=== PATIENT | female | born 1940 | race Caucasian/White ===

== ENCOUNTER 2020-05-01 14:26 | Outpatient (CLI) | payer MEDICARE, MEDICAID, SELFPAY ==
--- NOTE | 2020-05-01 14:31 | XR_ITS ---
WS: [id number] Bone mineral density performed on a [place], 05/01/2020 Clinical data: OSTEOPOROSIS AGE-RELATED WITHOUT CURRENT PATHOLOGICAL FX Findings: The first 4 lumbar vertebral bodies demonstrated the bone mineral density of 0.930 g/cm2 for a young adult T score of -2.1. Measurement of the left hip reveals a bone mineral density of 0.775 g/cm2 with a young adult T score of -1.9. Measurement of the right hip reveals the bone mineral density of 0.710 g/cm2 for young adult T score of -2.4. XR/XR DEXA axial skeleton* [id number] Impression: 1. Osteopenia of the lumbar spine and both hips. 2. Slight improvement in bone mineral density compared to previous examination of 02/01/2018.
== END 2020-05-01 14:27 | disposition home or self-care (01) ==
LOC: RADWPI 14:30
PROVIDERS: Family Provider Family Medicine; PCP Family Medicine; Visit Provider Family Medicine
DX: M81.0 Age-related osteoporosis without current pathological fracture (principal); M85.89 Other specified disorders of bone density and structure, multiple sites
CPT/HCPCS: 77080

== ENCOUNTER 2020-05-17 12:33 | Outpatient (CLI) | payer MEDICARE, MEDICAID, SELFPAY ==
--- NOTE | 2020-05-17 12:38 | USCV_ITS ---
February, Age: 80 Gender: F : 1940 Exam Date: 05/17/2020 12:51 Ordering Phys: Rolan Haskins MD (Andy) ([email or web address] [place]) Technologist: Maria C Fatima [place]am [place] [facility] [place]ication: Carotid artery dz Risk Factors: Previous Vascular Surgery: R CEA Right Brachial BP: / Left Brachial BP: / Right Left Velocity (cm/s) Spectral Plaque Velocity (cm/s) Spectral Plaque Syst/Diast Broadening Syst/Diast Broadening 125.70/13.20 Prox CCA 67.70 / 11.20 110.30/14.30 Mid CCA 82.00 / 23.50 160.00/23.30 Distal CCA 64.90 / 10.70 113.10/10.50 Prox ICA 103.90/ 19.10 137.50/23.35 Mid ICA 65.80 / 18.00 93.40/ 17.70 Distal ICA 57.30 / 15.90 169.10 ECA 144.10 1.30 ICA/CCA 1.27 Antegrade Vertebral Bi- directiona l 111.0/ 17.70 cm/s / cm/s 0 Tri Subclavian Bi 94.80 49.80 CONCLUSIONS Right ICA stenosis <50%. Mild atheromatous plaque right carotid bulb/ICA. Left ICA stenosis <50%. Mild atheromatous plaque left carotid bulb/ICA. Normal antegrade Doppler flow noted in the right vertebral artery. Bidirectional Doppler flow noted in the left vertebral artery. Callum Magana MD (Electronically Signed) Final Date: 17 May 2020 16:35 S
--- NOTE | 2020-05-17 12:51 | USCV_ITS ---
February, Age: 80 Gender: F : 1940 Exam Date: 05/17/2020 13:35 Ordering Phys: Rolan Haskins MD (Andy) ([email or web address]) Technologist: Raymundo Gracia [place] [facility] [place]: PRECORDIAL MURMUR BP: 139 / 75 HR: 89 Rhythm: Sinus Technical Quality: Technically difficult study MEASUREMENTS (Male / Female) Normal Values 2D ECHO LV Diastolic Diameter PLAX 4.4 cm 4.2 - 5.9 / 3.9 - 5.3 cm LV Systolic Diameter PLAX 2.9 cm LV Chamber Size 3.9 cm IVS Diastolic Thickness 1.3 cm 0.6 - 1.0 / 0.6 - 0.9 cm IVS Systolic Thickness 1.7 cm LVPW Diastolic Thickness 1.3 cm 0.6 - 1.0 / 0.6 - 0.9 cm LVPW Systolic Thickness 1.3 cm RV Chamber Size 2.9 cm LVOT Diameter 2.0 cm LV Ejection Fraction 2D Teich 65.1 % LA Diameter 4.3 cm LA Width 3.0 cm LA Height 4.2 cm RA Width 2.3 cm RA Height 3.8 cm Aorta at Sinotubular Diameter 2.3 cm M-MODE LV Diastolic Diameter MM 4.5 cm 4.2 - 5.9 / 3.9 - 5.3 cm LV Systolic Diameter MM 2.9 cm LV Ejection Fraction MM Teich 65.6 % IVS Diastolic Thickness MM 1.2 cm 0.6 - 1.0 / 0.6 - 0.9 cm IVS Systolic Thickness MM 1.1 cm LVPW Diastolic Thickness MM 1.0 cm 0.6 - 1.0 / 0.6 - 0.9 cm LVPW Systolic Thickness MM 1.7 cm Aortic Annulus Diameter 2.6 cm LA Ao Ratio MM 1.6 MV E Point Septal Separation 0.4 cm DOPPLER AV Peak Velocity 269.0 cm/s LVOT Peak Velocity 127.0 cm/s AV Area Cont Eq vti 1.6 cm squared AV Area Cont Eq pk 1.5 cm squared MV Area PHT 5.8 cm squared Mitral E to A Ratio 0.7 MV E' Velocity 5.0 cm/s Mitral E to MV E' Ratio 20.8 Mitral E to LV E' Lateral Ratio 20.4 Mitral E to LV E' Septal Ratio 21.2 TR Peak Velocity 191.9 cm/s TR Peak Gradient 14.7 mmHg TR Mean Velocity 169.8 cm/s TR Mean Gradient 11.8 mmHg TR Velocity Time Integral 54.5 cm TV Peak E Velocity 49.0 cm/s Right Atrial Pressure 3.0 mmHg Pulmonary Artery Systolic Pressu 17.7 mmHg PV Peak Velocity 59.0 cm/s FINDINGS Left Ventricle Normal left ventricular size and systolic function, EF 65%.mild left ventricular hypertrophy. No regional wall motion abnormalities. Grade I/IV diastolic dysfunction (abnormal relaxation filling pattern), normal to mildly elevated filling pressures. Right Ventricle The right ventricle is normal in size and function. Right Atrium The right atrium is normal in size. Left Atrium The left atrium is mildly dilated Mitral Valve Thickened mitral valve. Mild mitral annular calcification. Aortic Valve Mild aortic valve stenosis, mean gradient 12.6 mmHg, ISABELA 1.6 cm squared. Peak velocity of 2.69 m/s Tricuspid Valve No gross abnormalities noted Pulmonic Valve No gross abnormalities noted Pericardium Normal pericardium without effusion. Aorta Normal ascending aorta dimension. CONCLUSIONS Normal left ventricular size and systolic function, EF 65%.mild left ventricular hypertrophy. No regional wall motion abnormalities. Grade I/IV diastolic dysfunction (abnormal relaxation filling pattern), normal to mildly elevated filling pressures. Thickened mitral valve. Mild mitral annular calcification. The left atrium is mildly dilated Mild aortic valve stenosis, mean gradient 12.6 mmHg, ISABELA 1.6 cm squared. Peak velocity of 2.69 m/s. There is no pericardial effusion. There are no intracardiac masses. Compared to the study from 02/01/2018, there is development of aortic valve stenosis. Dr Alejandra Shepard MD [facility] (Electronically Signed) Final Date: 17 May 2020 17:41 S
== END 2020-05-17 12:34 | disposition home or self-care (01) ==
PROVIDERS: Family Provider Family Medicine; PCP Family Medicine; Visit Provider Thoracic Surgery (Cardiothoracic Vascular Surgery)
DX: I65.23 Occlusion and stenosis of bilateral carotid arteries (principal); R01.1 Cardiac murmur, unspecified; I08.0 Rheumatic disorders of both mitral and aortic valves
CPT/HCPCS: 93306; 93880

== ENCOUNTER 2020-12-14 13:01 | Outpatient (CLI) | payer MEDICARE, MEDICAID, SELFPAY ==
--- NOTE | 2020-12-14 13:10 | MM_ITS ---
WS: [id number] Exam: [id number] Date/Time of Exam: 12/14/2020 1:18 PM Reason For Exam: SCREENING VIEWS: MLO and CC views both breasts. Comparison made with prior exam of 07/16/2017, 07/23/2018 and 08/09/2019 Findings: There was no sign of mass, architectural distortion or suspicious calcification in either breast. Sc attered fibroglandular densities MM/[id number] Impression: BI-RADS: 2-Benign FOLLOW-UP: 1 Year Follow-up This mammogram was also analyzed by the Computer Aided Detection System R2 Imag e Distribution Analyst.
== END 2020-12-14 13:02 | disposition home or self-care (01) ==
LOC: RADSHAW 13:08
PROVIDERS: PCP Family Medicine; Visit Provider Family Medicine
DX: Z12.31 Encounter for screening mammogram for malignant neoplasm of breast (principal)
CPT/HCPCS: 77067

== ENCOUNTER 2021-01-07 10:23 | Outpatient (CLI) | payer MEDICARE, MEDICAID, SELFPAY ==
--- NOTE | 2021-01-07 10:31 | USCV_ITS ---
February, Age: 80 Gender: F : 1940 Exam Date: 01/07/2021 10:51 Ordering Phys: Rolan Haskins MD (Andy) ([email or web address] [place] Technologist: Kayli Tracy [place] [facility] [place]: EVAL FOR CAROTID STENOSIS Risk Factors: Previous Vascular Surgery: Right Brachial BP: / Left Brachial BP: / Right Left Velocity (cm/s) Spectral Plaque Velocity (cm/s) Spectral Plaque Syst/Diast Broadening Syst/Diast Broadening 98.10/ 11.00 Prox CCA 57.10 / 9.90 101.40/14.30 Mid CCA 67.40 / 17.10 143.30/15.40 Distal CCA 61.70 / 17.60 149.90/18.40 Prox ICA 164.50/ 38.30 88.00/ 20.80 Mid ICA 96.30 / 24.70 83.10/ 21.20 Distal ICA 94.00 / 24.80 119.20 ECA 249.95 1.05 ICA/CCA 2.44 Antegrade Vertebral Bi- directiona l 103.4/ 19.80 cm/s 62.40/ 24.80 cm/s 0 Tri Subclavian Tri 313.3 371.3 0 0 FINDINGS Comparison:. 05/17/20. Increasing velocity in the left ICA and tortuosity. Stable velocities right ICA. Bidirectional left vertebral artery. Mild left ECA stenosis. CONCLUSIONS Left ICA stenosis 50-69%. Stenosis has increased since the prior exam. Right ICA stenosis < 50%. Dr. Carolyne Luo DO (Electronically Signed) Final Date: 07 January 2021 16:25 S
== END 2021-01-07 10:24 | disposition home or self-care (01) ==
LOC: US 10:25
PROVIDERS: PCP Family Medicine; Visit Provider Thoracic Surgery (Cardiothoracic Vascular Surgery)
DX: I65.23 Occlusion and stenosis of bilateral carotid arteries (principal)
CPT/HCPCS: 93880

== ENCOUNTER 2021-07-17 10:36 | Outpatient (CLI) | payer MEDICARE, MEDICAID, SELFPAY ==
--- NOTE | 2021-07-17 11:00 | USCV_ITS ---
February, Age: 81 Gender: F : 1940 Exam Date: 07/17/2021 11:03 Ordering Phys: Rolan Haskins MD (Andy) ([email or web address] [place] Technologist: Raymundo Gracia [place] [facility] [place]: EVAL FOR STENOSIS Risk Factors: Previous Vascular Surgery: Right Brachial BP: / Left Brachial BP: / Right Left Velocity (cm/s) Spectral Plaque Velocity (cm/s) Spectral Plaque Syst/Diast Broadening Syst/Diast Broadening 84.90/ 11.00 Prox CCA 59.30 / 13.40 82.70/ 12.10 Mid CCA / 110.30/11.00 Distal CCA 46.80 / 11.10 126.70/15.80 Prox ICA 160.70/ 36.10 126.70/26.90 Mid ICA 105.40/ 20.30 125.10/23.80 Distal ICA 116.40/ 21.30 132.00 ECA 121.90 1.15 ICA/CCA 2.74 Antegrade Vertebral Antegrade 83.90/ 17.40 cm/s 118.1/ 9.80 cm/s 0 Tri Subclavian Tri 136.2 91.80 0 FINDINGS Comparison:. 01/07/21. Stable plaque and velocities since the prior exam. Continued moderate elevation of left ICA velocity and mild on the right. Bilateral antegrade vertebral arteries. CONCLUSIONS No change seen from prior study. Left ICA stenosis 50-69%. Right ICA stenosis < 50%. Dr. Carolyne Luo DO (Electronically Signed) Final Date: 17 July 2021 12:04 S
== END 2021-07-17 10:37 | disposition home or self-care (01) ==
PROVIDERS: PCP Family Medicine; Visit Provider Thoracic Surgery (Cardiothoracic Vascular Surgery)
DX: I65.23 Occlusion and stenosis of bilateral carotid arteries (principal)
CPT/HCPCS: 93880

== ENCOUNTER 2022-02-04 08:20 | Outpatient (CLI) | payer MEDICARE, MEDICAID, SELFPAY ==
--- NOTE | 2022-02-04 08:45 | MM_ITS ---
WS: [id number] BILATERAL SCREENING 2D DIGITAL MAMMOGRAM WITH CAD HISTORY: 12/14/2020 and 08/09/2019 COMPARISON: None available. Bilateral CC and MLO views submitted. Computer aided detection analyzed. 2-D imaging is performed on this examination. 3-D imaging not performed due to patient's condition an d risk for motion. Breast composition: There are scattered areas of fibroglandular density. No suspicious masses, microc alcifications or architectural distortion. There are numerous calcifications within each breast. Nipp les are retracted. Breast are similar to the prior study. MM/[id number] IMPRESSION: BI-RADS: 2-Benign FOLLOW UP: 1 Year Follow-up
== END 2022-02-04 08:21 | disposition home or self-care (01) ==
LOC: RADSHAW 08:21
PROVIDERS: PCP Family Medicine; Visit Provider Family Medicine
DX: Z12.31 Encounter for screening mammogram for malignant neoplasm of breast (principal)
CPT/HCPCS: 77067

== ENCOUNTER 2022-05-01 18:45 | Inpatient (IN) | payer MEDICARE, MEDICAID, SELFPAY ==
--- NOTE | 2022-05-01 18:52 | XRR_ITS ---
PROCEDURE INFORMATION: Exam: XR Chest Exam date and time: 05/01/2022 6:57 PM Age: 81 years old Clinical indication: Injury or trauma; Fall; Blunt trauma (contusions or hematomas) TECHNIQUE: Imaging protocol: Radiologic exam of the chest. Views: 1 view. COMPARISON: CR Chest 2 views* [id number] 03/16/2018 3:00 PM FINDINGS: Lungs: Lungs are clear. Pleural spaces: There is no pleural effusion or pneumothorax. Heart/Mediastinum: There is mild enlargement of the cardiac silhouette. Bones/joints: Healed left mid clavicle fracture. XR/XR chest 1V portable [id number] IMPRESSION: No acute findings.
--- NOTE | 2022-05-01 18:52 | CTR_ITS ---
PROCEDURE INFORMATION: Exam: CT Head Without Contrast Exam date and time: 05/01/2022 7:08 PM Age: 81 years old Clinical indication: Injury or trauma; Fall; Blunt trauma (contusions or hematomas); Injury details: PT has no visible symptoms and denies any pain TECHNIQUE: Imaging protocol: Computed tomography of the head without contrast. Radiation optimization: All CT scans at this facility use at least one of these dose optimization techniques: automated exposure control; mA and/or kV adjustment per patient size (includes targeted exams where dose is matched to clinical indication); or iterative reconstruction. COMPARISON: CTA Head/Neck [id number] 03/02/2018 12:59 PM RADIATION DOSE METRICS: Total DLP (mGy-cm): 1066.68 FINDINGS: Brain: There is diffuse cerebral atrophy and chronic microvascular white matter disease. There is no acute intracranial hemorrhage. Cerebral ventricles: There is no significant ventricular dilation. The basal cisterns are unremarkable. Paranasal sinuses: The paranasal sinuses are clear. Mastoid air cells: The mastoid air cells are clear. Bones/joints: The calvarium is intact. Soft tissues: The visible extracranial soft tissues are unremarkable. CT/CT head wo con* [id number] IMPRESSION: No acute intracranial abnormality.
--- NOTE | 2022-05-01 18:53 | ECG_ITS ---
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 Measurements Intervals [place] Rate: 86 P: 39 CT: 146 QRS: -65 QRSD: 102 T: 31 QT: 382 QTc: 459 Interpretive Statements SINUS RHYTHM PATTERN CONSISTENT WITH PULMONARY DISEASE LEFT ANTERIOR FASCICULAR BLOCK [QRS AXIS <= -45, QR IN I, RS IN II] MINIMAL VOLTAGE CRITERIA FOR LVH, CONSIDER NORMAL VARIANT [MEETS CRITERIA IN ONE OF: R(aVL), S(V1), R(V5), R(V5/V6)+S(V1)] No previous ECG available for comparison Electronically Signed On 05-01-2022 22:43:29 CDT by Alejandra Shepard M.D. [id number]
--- NOTE | 2022-05-01 18:56 | W.ED.FALL ---
HPI - Fall General: Chief Complaint: Fall Stated Complaint: FALL, LEG PAIN Time Seen by Provider: 05/01/22 18:46 Source: patient and EMS Mode of arrival: EMS Limitations: no limitations History of Present Illness: 81-year-old female who family came and checked on her and found her in the floor after a fall. States that she fell just before they arrived she denies any injuries denies any pain currently patient is a poor historian she does have a low-grade fever she denies any vomiting or diarrhea. She denies any loss of consciousness. Per patient's family she has had some weakness and confusion throughout the day as well with subjective fevers. Associated symptoms-after fall: Denies abdominal pain, chest pain, headache(s) or neck pain Review of Systems Const: Denies: fever(s), chills, body aches or change in appetite Eyes: Denies: blurry vision or eye discomfort ENMT: Denies: throat pain or dental pain Card: Denies: chest pain Resp: Denies: dyspnea GI: Denies: abdominal pain, nausea, vomiting or diarrhea : Denies: dysuria Musc: Denies: neck pain or back pain Skin/Breast: Denies: rash Neuro: Denies: headache(s) Psych: Denies: depression Guy/Lymph: Denies: easy bruising All/Imm: Denies: urticaria [facility] PFSH: Medical History (Updated 05/01/22 @ 21:59 by Taras Delgado MD) Cardiac murmur, previously undiagnosed Carotid stenosis, bilateral Hypertension Surgical History H/O carotid endarterectomy Family History Other No pertinent family history Social History Smoking and tobacco status: current every day smoker cigarettes Packs smoked per day: 0.5 Years cigarettes smoked: 60 Alcohol intake: never Physical Exam Const: COMMON NORMALS: patient oriented x3 GENERAL APPEARANCE: ill appearing HENMT: COMMON NORMALS: normocephalic and atraumatic HEAD & SCALP: normocephalic and atraumatic Eye: COMMON NORMALS: Equal, round and reactive pupils present and EOMs intact bilaterally PUPIL: Yes Equal, round and reactive pupils present Neck/C-Spine: COMMON NORMALS: full ROM and supple Chest: COMMONS NORMALS: normal inspection of the chest and normal palpation of entire chest wall Resp: COMMON NORMALS: normal respiratory effort, No retractions, No use of accessory muscles and clear to auscultation bilaterally AUSCULTATION: clear to auscultation bilaterally Cardio: COMMON NORMALS: regular rate, regular rhythm and No murmurs present (Cardio) RATE: regular rate RHYTHM: regular rhythm GI: COMMON NORMALS: Normal to inspection, nondistended, normoactive bowel sounds present, Soft to palpation, non-tender and no masses PALPATION: Yes Soft to palpation Extremity: COMMON NORMALS: full ROM NARRATIVE EXTREMITY EXAM: 2+ le edema Neuro: COMMON NORMALS: patient oriented x3, moves all extremities and no focal motor deficits Psych: COMMON NORMALS: mental status grossly normal, Normal thought process present and cooperative THOUGHT PROCESS: Normal thought process present Skin: COMMON NORMALS: no rashes or lesions noted and no wounds GENERAL SKIN EXAM: no rashes or lesions noted Course Vital Signs: Vital signs: Vital Signs Temperature 98.6 F 05/01/22 20:39 Pulse Rate 83 05/01/22 20:39 Respiratory Rate 21 H 05/01/22 20:39 Blood Pressure 126/54 05/01/22 20:39 Pulse Oximetry 97 05/01/22 20:39 MDM - Fall Medical Decision Making Patient presents here after a fall she has no signs of injuries from her fall. She has had some confusion per family she does have an elevated white count and a urinary tract infection here likely causing this spoke to the hospitalist and will admit at this time her blood pressures here have been stable. Lab Data : 05/01/22 20:12 05/01/22 19:55 Radiology Impressions Chest X-Ray 05/01/22 18:52 IMPRESSION: No acute findings. Head CT 05/01/22 18:52 IMPRESSION: No acute intracranial abnormality. Laboratory Results WBC 21.2 10^3/uL (4.0-10.0) H 05/01/22 20:12 Corrected WBC Cancelled 05/01/22 19:55 RBC 4.13 10^6/uL (4.1-5.3) 05/01/22 20:12 Hgb 11.2 g/dL (11.5-15.3) L 05/01/22 20:12 Hct 34.1 % (37.0-47.0) L 05/01/22 20:12 MCV 82.6 fl (81-99) 05/01/22 20:12 MCH 27.1 pg (28.0-34.0) L 05/01/22 20:12 MCHC 32.8 g/dL (30.0-36.0) 05/01/22 20:12 RDW 15.7 % (12.1-15.1) H 05/01/22 20:12 Plt Count 270 10^3/cmm (130-400) 05/01/22 20:12 MPV 11.1 fL (7.4-10.4) H 05/01/22 20:12 Gran % Cancelled 05/01/22 19:55 Neut % (Auto) 88.5 % 05/01/22 20:12 Lymph % (Auto) 3.4 % 05/01/22 20:12 [place] % (Auto) 6.7 % 05/01/22 20:12 Eos % (Auto) 0.0 % 05/01/22 20:12 Baso % (Auto) 0.2 % 05/01/22 20:12 Neut # (Auto) 18.76 10^3/uL (1.8-7.7) H 05/01/22 20:12 Lymph # (Auto) 0.7 10^3/uL (0.8-4.8) L 05/01/22 20:12 [place] # (Auto) 1.4 10^3/uL (0.2-0.9) H 05/01/22 20:12 Eos # (Auto) 0.0 10^3/uL (0.0-0.8) 05/01/22 20:12 Baso # (Auto) 0.1 10^3/uL (0.0-0.1) 05/01/22 20:12 Absolute Gran (auto) Cancelled 05/01/22 19:55 Nucleated RBC % (auto) 0 % 05/01/22 20:12 Nucleated RBCs # 0.0 /100WBC 05/01/22 20:12 Sodium 134 mmol/L (136-145) L 05/01/22 19:55 Potassium 4.7 mmol/L (3.5-5.1) 05/01/22 19:55 Chloride 97 mmol/L (98-107) L 05/01/22 19:55 Carbon Dioxide 23 mmol/L (22-29) 05/01/22 19:55 Anion Gap 18.7 (5-19) 05/01/22 19:55 BUN 32 mg/dL (8-23) H 05/01/22 19:55 Creatinine 1.8 mg/dL (0.5-0.9) H 05/01/22 19:55 GFR Calculation Not Reportable 05/01/22 19:55 Glucose 203 mg/dL (65-115) H 05/01/22 19:55 Calculated Osmolality 291 mOsm/kg (285-295) 05/01/22 19:55 Calcium 9.0 mg/dL (8.5-10.5) 05/01/22 19:55 Total Bilirubin 0.5 mg/dL (0.15-1.2) 05/01/22 19:55 AST 18 U/L (0-32) 05/01/22 19:55 ALT 12 U/L (0-33) 05/01/22 19:55 Alkaline Phosphatase 99 IU/L (35-105) 05/01/22 19:55 NT-Pro-B Natriuret Pep 1872 pg/mL (0-450) H 05/01/22 19:55 Total Protein 7.0 g/dL (6.6-8.7) 05/01/22 19:55 Albumin 3.6 g/dL (3.5-5.2) 05/01/22 19:55 Globulin 3.4 g/dL (1.3-4.6) 05/01/22 19:55 Urine Color Yellow (Yellow) 05/01/22 20:44 Urine Appearance Sl hazy (CLEAR) 05/01/22 20:44 Urine pH 5 (5-7) 05/01/22 20:44 Ur Specific [place] 1.020 (1.005-1.030) 05/01/22 20:44 Urine Protein 3+ (Negative) H 05/01/22 20:44 Urine Glucose (UA) Norm (Normal) 05/01/22 20:44 Urine Ketones Negative (Negative) 05/01/22 20:44 Urine Blood Trace (Negative) H 05/01/22 20:44 Urine Nitrate Positive (Negative) H 05/01/22 20:44 Urine Bilirubin Neg (Negative) 05/01/22 20:44 Urine Urobilinogen Norm mg/dL (Negative) 05/01/22 20:44 Ur Leukocyte Esterase Trace (Negative) H 05/01/22 20:44 Urine RBC 0-4 /hpf (0-2) H 05/01/22 20:44 Urine WBC >100 /hpf (0-5) H 05/01/22 20:44 Ur Squamous Epith Cells 0-4 /hpf (0-5) H 05/01/22 20:44 Amorphous Sediment 1+ /hpf 05/01/22 20:44 Urine Bacteria 4+ /hpf (NONE) H 05/01/22 20:44 Fine Granular Casts 0-4 /lpf H 05/01/22 20:44 SARS-CoV-2 Ag (Rapid) Negative (Negative) 05/01/22 19:55 EKG Data EKG 1: I personally reviewed and interpreted this EKG as follows: EKG interpretation date: 05/01/22 EKG interpretation time: 19:30 Interpretation: nsr hr [address] or t wave abnormalities qrs 102 qtc 426 Discharge Plan Discharge Patient Disposition: Admitted As Inpatient Clinical Impression: Acute cystitis, Confusion, Fall Condition: Stable Prescriptions: No Action aspirin 81 mg tablet,delayed release (DR/EC) 81 mg PO DAILY 0RF atorvastatin 40 mg tablet 40 mg PO DAILY 0RF glimepiride 1 mg tablet 1 mg PO QAM 0RF potassium chloride 10 mEq Tablet Extended Release 20 meq PO DAILY 0RF levothyroxine 50 mcg tablet 50 mcg PO DAILY 0RF furosemide 20 mg tablet 20 mg PO DAILY 0RF Referrals: Salud Motta MD [Primary Care Provider] - Coding Level of Care Code ED Presales Senior Specialist for Chg Fwd Exam Comprehensive
[2022-05-01] MEDS: acetaminophen 325 mg Tablet 650 MG PO (19:42)
[2022-05-01 20:31] VITALS: BMI 31.2
[2022-05-01 20:32] LABS: Alanine Aminotransferase 12 U/L (0-33); Albumin Level 3.6 g/dL (3.5-5.2); Alkaline Phosphatase 99 IU/L (35-105); Blood Urea Nitrogen 32 mg/dL (8-23); Carbon Dioxide 23 mmol/L (22-29); Chloride 97 mmol/L (98-107); Globulin 3.4 g/dL (1.3-4.6); Glucose 203 mg/dL (65-115); NT Pro B Type Natriuretic Pept 1872 pg/mL (0-450); Osmolality Calculated 291 mOsm/kg (285-295); Sodium 134 mmol/L (136-145); Total Bilirubin 0.5 mg/dL (0.15-1.2)
[2022-05-01 20:35] LABS: Anion Gap 18.7 (5-19); Aspartate Amino Transferase 18 U/L (0-32); Potassium 4.7 mmol/L (3.5-5.1)
[2022-05-01 20:36] LABS: SARS Covid-2 Antigen Negative (Negative)
[2022-05-01 20:39] VITALS: BP 126/54; PULSE 83; RESP 21; TEMP 37; O2SAT 97
[2022-05-01 21:21] LABS: Add Urine Culture? Yes; Add Urine Microscopic? YES; Amorphous Sediment Urine 1+ /hpf; Bacteria Urine 4+ /hpf; Bilirubin Urine Neg (Negative); Blood Urine Trace (Negative); Fine Granular Casts Urine 0-4 /lpf; Glucose Urine UA Norm (Normal); Ketones Urine Negative (Negative); Leukocyte Esterase Urine Trace (Negative); Nitrate Urine Positive (Negative); Protein Urine 3+ (Negative); RBC Urine 0-4 /hpf (0-2); Squamous Epithelial Cell Urine 0-4 /hpf (0-5); Urine Appearance SL Hazy (CLEAR); Urine Color Yellow (Yellow); Urobilinogen Urine Norm (Negative); WBC Urine >100 /hpf (0-5); pH Urine 5 (5-7)
[2022-05-01 21:31] LABS: Basophils # 0.1 10^3/uL (0.0-0.1); Basophils % 0.2 %; Hematocrit 34.1 % (37.0-47.0); Hemoglobin 11.2 g/dL (11.5-15.3); Lymphocytes # 0.7 10^3/uL (0.8-4.8); Lymphocytes % 3.4 %; Mean Corpuscular HGB Conc 32.8 g/dL (30.0-36.0); Mean Corpuscular Hemoglobin 27.1 pg (28.0-34.0); Mean Corpuscular Volume 82.6 fl (81-99); Mean Platelet Volume 11.1 fL (7.4-10.4); Monocytes # 1.4 10^3/uL (0.2-0.9); Monocytes % 6.7 %; Neutrophils # 18.76 10^3/uL (1.8-7.7); Neutrophils % 88.5 %; Nucleated Red Blood Cells % 0 %; Platelet Count 270 10^3/cmm (130-400); Red Blood Count 4.13 10^6/uL (4.1-5.3); Red Cell Distribution Width 15.7 % (12.1-15.1); White Blood Count 21.2 10^3/uL (4.0-10.0)
[2022-05-01] MEDS: cefTRIAXone 1,000 MG in sodium chloride 0.9% (plus) 50 ML 100 MG IV (22:19)
[2022-05-01 23:02] VITALS: BP 117/54; PULSE 84; RESP 22; O2SAT 92
[2022-05-02] VITALS (13 sets, daily range): BP systolic 95–159; BP diastolic 55–69; PULSE 67–101; RESP 16–24; TEMP 36.5–36.9; O2SAT 92–98
--- NOTE | 2022-05-02 00:30 | P.HP_ITS ---
Providers/Chief Complaint Admitting Physician: Tere Frias MD Primary Care Provider: Salud oMtta MD Chief Complaint: FALL, LEG PAIN History of Present Illness Nia Palmer February is a 81 year old female with PMH DM, HTN, carotid stenosis p/w fall at home. Circumstances of fall not clear at this time. Ct head without acute intracranial events. Upon ER arrival she was noted to have fever, generalized fatigue and malaise and appeared slightly confused. At baseline she is alert, awake and oriented. Patient does not recall details leading up to hospital admission. denies any cough, chest pain, dyspnea, palpitations, URI symptoms. Denies abdominal pain, NVD, dysuria. Review of Systems General: Reports: 10 or more systems reviewed and unremarkable except in HPI and below Const: Denies: fever(s), chills or body aches Eyes: Denies: change in vision, blurry vision or photophobia ENMT: Reports: hoarseness; Denies: throat pain, enlarged tonsils, odynophagia or nasal congestion Card: Denies: chest pain, palpitations, irregular heart rhythm, edema, swelling of feet/ankles, lightheadedness, pre-syncope, dyspnea on exertion or orthopnea Resp: Denies: dyspnea, productive cough, non-productive cough, wheezing, stridor, pain on inspiration, change in phlegm color, hemoptysis or chest congestion GI: Denies: abdominal pain, nausea, vomiting, hematemesis, coffee ground emesis, dysphagia, heartburn, diarrhea, constipation, GI cramping, change in stool character, hematochezia or melena : Denies: flank pain, difficulty voiding, dysuria, urinary frequency, urinary urgency, urinary hesitancy or hematuria Musc: Denies: neck pain, back pain, extremity pain, joint swelling, joint warmth or deformity Neuro: Denies: headache(s), numbness in extremities, weakness in extremities, sensory changes, difficulty walking, frequent falls, dizziness, vertigo, behavioral changes, Slurred speech present or seizure-like activity Psych: Denies: anxiety, depression, suicidal ideation or homicidal ideation Endo: Denies: polyuria, polydipsia, tired all the time, cold intolerance or hot flashes Guy/Lymph: Denies: easy bruising or easy bleeding Medications/Allergies Home Medications Medication Instructions Recorded Confirmed Last Taken Type aspirin 81 mg tablet,delayed 81 mg PO DAILY tab 10/25/19 05/01/22 05/01/22 History release atorvastatin 40 mg tablet 40 mg PO DAILY tab 10/25/19 05/01/22 04/30/22 History glimepiride 1 mg tablet 1 mg PO QAM 10/25/19 05/01/22 05/01/22 History furosemide 20 mg tablet 20 mg PO DAILY 05/01/22 05/01/22 05/01/22 History levothyroxine 50 mcg tablet 50 mcg PO DAILY 05/01/22 05/01/22 05/01/22 History potassium chloride 10 mEq 20 meq PO DAILY 05/01/22 05/01/22 05/01/22 History tablet,extended release Allergies Allergy/AdvReac Type Severity Reaction Status Date / Time No Known Allergies Allergy Unverified 01/10/21 09:36 PFSH Acute PFSH: Medical History (Updated 05/02/22 @ 00:38 by Tere Frias MD) Anemia Cardiac murmur, previously undiagnosed Carotid stenosis, bilateral Chronic kidney disease Diabetes Heart murmur Hypercholesteremia Hypertension Hypothyroid Surgical History (Updated 05/02/22 @ 00:38 by Tere Frias MD) H/O carotid endarterectomy H/O vascular surgery Family History Other No pertinent family history Social History Smoking and tobacco status: current every day smoker cigarettes Packs smoked per day: 0.5 Years cigarettes smoked: 60 Alcohol intake: never Vitals/I&O/Wt Last Vital Signs Temp 98.6 F 05/01/22 20:39 Pulse 84 05/01/22 23:02 Resp 22 H 05/01/22 23:02 BP 117/54 05/01/22 23:02 Pulse Ox 92 05/01/22 23:02 05/01/22 05/01/22 05/02/22 14:59 22:59 06:59 Intake Total 50 / 50 Balance 50 / 50 Weight last 48 hrs Weight 85.275 kg Physical Exam Narrative: GEN: Awake, alert and oriented, no acute distress CVS: S1S2 N RS: CTA B/L all areas Abd: Soft, nt/nd , bs+ 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 Head CT 05/01/22 18:52 IMPRESSION: No acute intracranial abnormality. Laboratory Results WBC 21.2 10^3/uL (4.0-10.0) H 05/01/22 20:12 Corrected WBC Cancelled 05/01/22 19:55 RBC 4.13 10^6/uL (4.1-5.3) 05/01/22 20:12 Hgb 11.2 g/dL (11.5-15.3) L 05/01/22 20:12 Hct 34.1 % (37.0-47.0) L 05/01/22 20:12 MCV 82.6 fl (81-99) 05/01/22 20:12 MCH 27.1 pg (28.0-34.0) L 05/01/22 20:12 MCHC 32.8 g/dL (30.0-36.0) 05/01/22 20:12 RDW 15.7 % (12.1-15.1) H 05/01/22 20:12 Plt Count 270 10^3/cmm (130-400) 05/01/22 20:12 MPV 11.1 fL (7.4-10.4) H 05/01/22 20:12 Gran % Cancelled 05/01/22 19:55 Neut % (Auto) 88.5 % 05/01/22 20:12 Lymph % (Auto) 3.4 % 05/01/22 20:12 Frio % (Auto) 6.7 % 05/01/22 20:12 Eos % (Auto) 0.0 % 05/01/22 20:12 Baso % (Auto) 0.2 % 05/01/22 20:12 Neut # (Auto) 18.76 10^3/uL (1.8-7.7) H 05/01/22 20:12 Lymph # (Auto) 0.7 10^3/uL (0.8-4.8) L 05/01/22 20:12 Frio # (Auto) 1.4 10^3/uL (0.2-0.9) H 05/01/22 20:12 Eos # (Auto) 0.0 10^3/uL (0.0-0.8) 05/01/22 20:12 Baso # (Auto) 0.1 10^3/uL (0.0-0.1) 05/01/22 20:12 Absolute Gran (auto) Cancelled 05/01/22 19:55 Nucleated RBC % (auto) 0 % 05/01/22 20:12 Nucleated RBCs # 0.0 /100WBC 05/01/22 20:12 Sodium 134 mmol/L (136-145) L 05/01/22 19:55 Potassium 4.7 mmol/L (3.5-5.1) 05/01/22 19:55 Chloride 97 mmol/L (98-107) L 05/01/22 19:55 Carbon Dioxide 23 mmol/L (22-29) 05/01/22 19:55 Anion Gap 18.7 (5-19) 05/01/22 19:55 BUN 32 mg/dL (8-23) H 05/01/22 19:55 Creatinine 1.8 mg/dL (0.5-0.9) H 05/01/22 19:55 GFR Calculation Not Reportable 05/01/22 19:55 Glucose 203 mg/dL (65-115) H 05/01/22 19:55 Calculated Osmolality 291 mOsm/kg (285-295) 05/01/22 19:55 Calcium 9.0 mg/dL (8.5-10.5) 05/01/22 19:55 Total Bilirubin 0.5 mg/dL (0.15-1.2) 05/01/22 19:55 AST 18 U/L (0-32) 05/01/22 19:55 ALT 12 U/L (0-33) 05/01/22 19:55 Alkaline Phosphatase 99 IU/L (35-105) 05/01/22 19:55 NT-Pro-B Natriuret Pep 1872 pg/mL (0-450) H 05/01/22 19:55 Total Protein 7.0 g/dL (6.6-8.7) 05/01/22 19:55 Albumin 3.6 g/dL (3.5-5.2) 05/01/22 19:55 Globulin 3.4 g/dL (1.3-4.6) 05/01/22 19:55 Urine Color Yellow (Yellow) 05/01/22 20:44 Urine Appearance Sl hazy (CLEAR) 05/01/22 20:44 Urine pH 5 (5-7) 05/01/22 20:44 Ur Specific [place] 1.020 (1.005-1.030) 05/01/22 20:44 Urine Protein 3+ (Negative) H 05/01/22 20:44 Urine Glucose (UA) Norm (Normal) 05/01/22 20:44 Urine Ketones Negative (Negative) 05/01/22 20:44 Urine Blood Trace (Negative) H 05/01/22 20:44 Urine Nitrate Positive (Negative) H 05/01/22 20:44 Urine Bilirubin Neg (Negative) 05/01/22 20:44 Urine Urobilinogen Norm mg/dL (Negative) 05/01/22 20:44 Ur Leukocyte Esterase Trace (Negative) H 05/01/22 20:44 Urine RBC 0-4 /hpf (0-2) H 05/01/22 20:44 Urine WBC >100 /hpf (0-5) H 05/01/22 20:44 Ur Squamous Epith Cells 0-4 /hpf (0-5) H 05/01/22 20:44 Amorphous Sediment 1+ /hpf 05/01/22 20:44 Urine Bacteria 4+ /hpf (NONE) H 05/01/22 20:44 Fine Granular Casts 0-4 /lpf H 05/01/22 20:44 SARS-CoV-2 Ag (Rapid) Negative (Negative) 05/01/22 19:55 A&P Assessment and plan (1) Acute cystitis: + UA, leukocytosis and fever - likely UTI/acute cystitis empiric Ceftriaxone 1g iv q24h blood cx taken prior to starting abx Status: Acute (2) Confusion: suspect this is related to metabolic encephalopathy from UTI Status: Acute Attestations Medical Necessity Statement*: anticipate >2midnight admission for management of UTI, metabolic necephalopathy, Iv abx Coding Level of Care Code Acute Mounter Sousaphones for [facility] Fwd Diagnoses Acute cystitis N30.00 Confusion R41.0
[2022-05-02] MEDS: enoxaparin 40 mg/0.4 mL Syringe SUBCUT (00:58)
[2022-05-02] MEDS: sodium chloride 0.9% 1,000 ML 50 ML IV (00:58)
[2022-05-02 04:12] LABS: Alanine Aminotransferase 10 U/L (0-33); Albumin Level 2.9 g/dL (3.5-5.2); Alkaline Phosphatase 83 IU/L (35-105); Anion Gap 14.2 (5-19); Aspartate Amino Transferase 15 U/L (0-32); Blood Urea Nitrogen 34 mg/dL (8-23); Calcium 8.2 mg/dL (8.5-10.5); Carbon Dioxide 24 mmol/L (22-29); Chloride 102 mmol/L (98-107); Glucose 109 mg/dL (65-115); Osmolality Calculated 290 mOsm/kg (285-295); Potassium 4.2 mmol/L (3.5-5.1); Sodium 136 mmol/L (136-145); Total Bilirubin 0.4 mg/dL (0.15-1.2); Total Protein 5.9 g/dL (6.6-8.7)
[2022-05-02 06:16] LABS: Glucose Point of Care 114 mg/dL (70-110)
[2022-05-02] MEDS: aspirin 81 mg EC Tablet PO (07:52)
[2022-05-02] MEDS: atorvastatin 40 mg Tablet PO (07:52)
[2022-05-02] MEDS: potassium chloride ER 10 mEq Tablet 20 MEQ PO (07:52)
[2022-05-02] MEDS: levothyroxine 50 mcg Tablet PO (07:53)
[2022-05-02 11:30] LABS: Iron 13 ug/dL (37-145); Percent Saturation 7.5 % (20-50); Thyroid Stimulating Hormone 5.19 uIU/mL (0.27-4.20); Total Iron Binding Capacity 173 mcg/dl; Unsaturated Iron Binding 160 ug/dL (112-347); Vitamin B12 455 pg/mL (232-1245)
[2022-05-02 11:34] LABS: Glucose Point of Care 94 mg/dL (70-110)
[2022-05-02 12:50] LABS: Folate Level > 20.0 ng/mL (4.8-37.3)
--- NOTE | 2022-05-02 13:21 | PM.PN ---
Subjective Subjective: Admitted overnight. Seen with family at bedside. Patient sitting up in bed. Awake and alert. Denies any nausea, vomiting, headache. Currently on 2 L saturating 94%. States breathing is at his baseline. Patient was found slightly coarse on examination. Vitals/I&O/Wt Last Vital Signs Temp 98.4 F 05/02/22 12:00 Pulse 91 05/02/22 12:00 Resp 17 05/02/22 12:00 BP 140/55 05/02/22 12:00 Pulse Ox 94 05/02/22 12:00 05/01/22 05/02/22 05/02/22 22:59 06:59 14:59 Intake Total 50 / 50 390 / 390 Output Total 0 / 0 Balance 50 / 50 390 / 390 Weight last 48 hrs Weight 85.275 kg Physical Exam Narrative: General: No acute distress, AO x3, on 2 L HEENT: PERRLA, pupils bilaterally equal and reactive Chest: Bilateral bronchial breath sounds, coarse crackles all over the lung singh. CVS: S1-S2 regular, no murmurs, no tachycardia, no gallops, no rubs Abdomen: Soft, nontender, no organomegaly, bowel sounds present Neuro: No focal deficits, no facial deformity, AO x3, power 5/5 in all limbs Data : 05/01/22 20:12 05/02/22 03:37 Micro: Microbiology 05/01/22 22:19 Blood Culture - Preliminary Blood 05/01/22 22:17 Blood Culture - Preliminary Blood SPECIMEN COLLECTED A&P Assessment and plan (1) Gram-positive bacteremia: Status: Acute (2) Confusion: Status: Acute (3) Acute cystitis: Status: Acute (4) Fall: Status: Acute (5) Carotid stenosis, bilateral: Status: Acute (6) Chronic kidney disease: Status: Acute (7) Diabetes: Status: Acute Plan Sepsis secondary to UTI: UA concerning for UTI. Ruled in by leukocytosis, fever, target organ dysfunction with altered mental status. Present on admission. Blood culture from admission 2 out of 3 bottles positive for gram-positive cocci. Mild hypoxia. Check CT chest abdomen pelvis without contrast to rule out pneumonia, obstructive nephropathy, history of CKD. Continue with ceftriaxone. Check MRSA swab. Start on IV vancomycin as per creatinine clearance. Repeat blood culture in a.m. Follow-up blood cultures and urine culture. Patient will need at least 2 weeks of IV antibiotics after first negative blood culture. Altered mental status: Most likely secondary to metabolic encephalopathy from UTI. Seems to be going back to baseline. Treatment as above. Continue to monitor. Frequent reorientation. CT head done on admission negative for any acute abnormality. CKD: Baseline creatinine 1.62. Currently creatinine baseline. Strict input output charting, daily weights. Medical reconstruction done for nephrotoxic drugs. Fall: Physical therapy evaluation. Most likely secondary to AMS from UTI. Type 2 diabetes mellitus: Insulin sliding scale. Carb consistent diet. Check A1c. Carotid artery stenosis: Last ultrasound in June 2021. Seems to be stable. Check lipid panel. Continue with aspirin, statin. Obstructive sleep apnea: Continuing home CPAP at night. Full code. Carb consistent diet. Lovenox for DVT prophylaxis. Protonix for PUD prophylaxis. 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
--- NOTE | 2022-05-02 13:22 | CT_ITS ---
WS: [id number] CT CHEST, ABDOMEN AND PELVIS NONCONTRAST. HISTORY: Shortness of breath, UTI, CKD TECHNIQUE: Contiguous 5 mm axial imaging performed through the chest, abdomen and pelvis without IV c ontrast, oral contrast has not been provided. Coronal and sagittal reformats chest. Coronal and sagit linda reformats through the abdomen and pelvis. All CT scans at [facility] use at least one of these dose optimization techniques: automated exposure control; mA and/or kV adjustment per patient s ize (includes targeted exams where dose is matched to clinical indication); or iterative reconstructi on. CONTRAST: None DLP: 1302.07 mGy.cm COMPARISON: None available. Motion artifact throughout the entire CT evaluation. Chest CT: Mild groundglass attenuation and haziness. Breathing artifact. Superimposed mild pneumoniti s may appear similar. No dense consolidations or pneumonia. 5 mm nodule towards the LEFT lingula. Sub segmental atelectasis at the lung bases. No pleural effusion. Moderate enlargement the heart. Heavy c alcification within the aorta. Normal size pulmonary artery. No adenopathy identified on this unenhan eddie exam. Small hiatal hernia. Abdomen CT: Hepatic steatosis. Significant motion artifact. Gallbladder is present. Spleen is normal size. Pancreas limited due to motion. Perinephric stranding and motion artifact. No obstruction. Mode rate atherosclerosis aorta with calcification at the origin of the mesenteric arteries. Moderate sten osis involving the abdominal aorta just below the level of the renal arteries. Minimum diameter of th e infrarenal aorta 6 mm. No GI tract obstruction. No adenopathy. No ascites. Free air would be difficult to exclude. Injection site anterior abdominal wall. Pelvic CT: Moderate fecal retention in the rectum. Well-distended urinary bladder. No free fluid or a denopathy. Increase in thoracic kyphosis. No osteoblastic or osteolytic bone disease. CT/[place] [id number] IMPRESSION: 1. High-grade stenosis infrarenal abdominal aortic aneurysm with a maximum yuliya meter 6 mm. 2. Extensive atherosclerosis abdominal aorta with no aneurysm. 3. Motion artifact throughout the chest, abdomen and pelvis. 4. No pneumonia. 5. Bilateral lower lobe atelectasis. 6. No renal obstruction.
[2022-05-02 14:12] LABS: Free T4 Free Thyroxine 0.92 ng/dL (0.82-1.77); T3 Free 1.6 PG/ML (2.0-4.4)
[2022-05-02] MEDS: vancomycin 1,250 MG/250 ML PIGGYBACK 200 MG IV (15:10)
[2022-05-02 16:54] LABS: Glucose Point of Care 96 mg/dL (70-110)
[2022-05-02 21:29] LABS: Glucose Point of Care 109 mg/dL (70-110)
[2022-05-02] MEDS: cefTRIAXone 1,000 MG in sodium chloride 0.9% (plus) 50 ML 100 MG IV (22:55)
[2022-05-03] VITALS (7 sets, daily range): BP systolic 132–170; BP diastolic 63–78; PULSE 55–80; RESP 15–20; TEMP 36.5–37.2; O2SAT 92–99
[2022-05-03 06:58] LABS: Alanine Aminotransferase 16 U/L (0-33); Albumin Level 2.8 g/dL (3.5-5.2); Alkaline Phosphatase 89 IU/L (35-105); Anion Gap 16.4 (5-19); Aspartate Amino Transferase 21 U/L (0-32); Blood Urea Nitrogen 30 mg/dL (8-23); Calcium 8.4 mg/dL (8.5-10.5); Carbon Dioxide 21 mmol/L (22-29); Chloride 103 mmol/L (98-107); Chol HDL Ratio 4.05 mg/dL (0.0-4.40); Cholesterol 178 mg/dL (0-200); Globulin 3.8 g/dL (1.3-4.6); Glucose 88 mg/dL (65-115); HDL Cholesterol 44 mg/dL (60-100); LDL Cholesterol Calculated 108 mg/dL (50-129); Osmolality Calculated 288 mOsm/kg (285-295); Potassium 4.4 mmol/L (3.5-5.1); Sodium 136 mmol/L (136-145); Total Bilirubin 0.2 mg/dL (0.15-1.2); Total Protein 6.6 g/dL (6.6-8.7); Triglycerides 132 mg/dL (0-150); VLDL Cholestrol Calculation 26 mg/dL (0-30)
[2022-05-03] MEDS: atorvastatin 40 mg Tablet PO (07:53)
[2022-05-03] MEDS: potassium chloride ER 10 mEq Tablet 20 MEQ PO (07:53)
[2022-05-03] MEDS: aspirin 81 mg EC Tablet PO (07:53)
[2022-05-03] MEDS: enoxaparin 30 mg/0.3 mL Syringe SUBCUT (07:54)
[2022-05-03] MEDS: levothyroxine 50 mcg Tablet PO (07:55)
[2022-05-03 10:54] LABS: Estmated Average Glucose 174; Hemoglobin A1C 7.7 % (4.0-6.0)
[2022-05-03 11:08] LABS: Glucose Point of Care 129 mg/dL (70-110)
[2022-05-03] MEDS: amlodipine 10 mg Tablet PO (13:13)
--- NOTE | 2022-05-03 13:45 | PM.PN ---
Subjective Subjective: No acute events overnight. Sitting up in recliner. Denies any new or active complains. Family at bedside. Blood pressure slightly elevated. Afebrile Vitals/I&O/Wt Last Vital Signs Temp 97.7 F 05/03/22 11:44 Pulse 80 05/03/22 11:44 Resp 18 05/03/22 11:44 BP 167/78 05/03/22 11:44 Pulse Ox 95 05/03/22 11:44 05/02/22 05/03/22 05/03/22 22:59 06:59 14:59 Intake Total 950 / 1340 50 / 1390 360 / 360 Balance 950 / 1340 50 / 1390 360 / 360 Weight last 48 hrs Weight 85.275 kg Physical Exam Narrative: General: No acute distress, AO x3, on RA HEENT: PERRLA, pupils bilaterally equal and reactive Chest: Bilateral bronchial breath sounds, coarse crackles all over the lung singh. CVS: S1-S2 regular, no murmurs, no tachycardia, no gallops, no rubs Abdomen: Soft, nontender, no organomegaly, bowel sounds present Neuro: No focal deficits, no facial deformity, AO x3, power 5/5 in all limbs Data : 05/01/22 20:12 05/03/22 06:20 Micro: Microbiology 05/02/22 15:00 MRSA Culture - Final Nose 05/01/22 20:44 Urine Culture - Preliminary Urine,Clean Catch Gram Negative Rods 05/03/22 06:20 Blood Culture - Preliminary Blood SPECIMEN COLLECTED 05/01/22 22:17 Blood Culture - Preliminary Blood NEGATIVE TO DATE 05/01/22 22:19 Blood Culture - Preliminary Blood A&P Assessment and plan (1) Gram-positive bacteremia: Status: Acute (2) Confusion: Status: Acute (3) Acute cystitis: Status: Acute (4) Fall: Status: Acute (5) Carotid stenosis, bilateral: Status: Acute (6) Chronic kidney disease: Status: Acute (7) Diabetes: Status: Acute (8) Stenosis of artery of abdomen: Status: Acute (9) AAA (abdominal aortic aneurysm): Status: Acute Plan Sepsis secondary to UTI: UA concerning for UTI. Ruled in by leukocytosis, fever, target organ dysfunction with altered mental status. Present on admission. Blood culture from admission 2 out of 3 bottles positive for gram-positive cocci. Most likely secondary to lower limb cellulitis. CT chest and pelvis results appreciated. Negative for pneumonia or obstructive nephropathy. Repeat blood cultures sent. Urine culture positive for gram-negative rods. Blood culture sensitivities awaited. MRSA negative. On arrival vancomycin and ceftriaxone. Altered mental status:Resolved. Most likely secondary to metabolic encephalopathy from UTI. Continue to monitor. Frequent reorientation. CT head done on admission negative for any acute abnormality. CKD: Baseline creatinine 1.6-2. Currently creatinine baseline. Strict input output charting, daily weights. Medical reconstruction done for nephrotoxic drugs. Fall: Physical therapy evaluation. Most likely secondary to AMS from UTI. Type 2 diabetes mellitus: Insulin sliding scale. Carb consistent diet. Check A1c. Carotid artery stenosis: Last ultrasound in June 2021. Seems to be stable. Check lipid panel. Continue with aspirin, statin. Infrarenal abdominal aortic aneurysm stenosis: High-grade as seen on CT abdomen pelvis. Will check lower limb aortic Dopplers. Will consult Dr. Haskins next week once available for further evaluation and management. Obstructive sleep apnea: Continuing home CPAP at night. Full code. Carb consistent diet. Lovenox for DVT prophylaxis. Protonix for PUD prophylaxis. 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
--- NOTE | 2022-05-03 13:55 | USR_ITS ---
PROCEDURE INFORMATION: Exam: US Duplex Lower Extremity Arteries Exam date and time: 05/03/2022 2:35 PM Age: 81 years old Clinical indication: Abnormal findings; Abnormal imaging study of limbs; Infra renal aaa high grade stenosis; CT TECHNIQUE: Imaging protocol: Real-time ultrasound scan of the arteries of the bilateral lower extremities with 2-D holland scale, color Doppler flow and spectral waveform analysis. Images documented and saved. COMPARISON: [place] [id number] 05/02/2022 2:47 PM FINDINGS: Right external iliac artery: Right distal external iliac and common femoral arteries: No occlusion or significant stenosis. Abnormal monophasic waveform with no obvious tardus parvus. Right common femoral artery: No occlusion or significant stenosis. Normal waveform. Right superficial femoral artery: No occlusion. Monophasic waveform with no obvious tardus parvus. Somewhat elevated velocity throughout the right SFA measuring 205-310 cm/s. Right popliteal artery: No occlusion. It is difficult to assess due to small size and large body habitus. Monophasic waveform. Right calf/foot arteries: Unable to adequately to assess due to overlying bandages. Left external iliac artery: Left distal external iliac common femoral arteries: No occlusion or significant stenosis. Abnormal monophasic waveform without obvious tardus parvus. Left common femoral artery: No occlusion or significant stenosis. Normal waveform. Left superficial femoral artery: No occlusion. Monophasic waveform with no obvious tardus parvus. Somewhat elevated velocity throughout the proximal and mid SFA a measuring 196-287 cm/s. Left popliteal artery: No occlusion. Monophasic waveform and difficult to assess due to small size and body habitus. Left calf/foot arteries: Unable to adequately to assess due to overlying bandages. US/[place] [id number] IMPRESSION: 1. No obvious occlusion in the common femoral segments through popliteal regions, however there is somewhat diffusely elevated velocities throughout the bilateral SFAs with monophasic waveform suggesting at least moderate long segment stenoses/diffuse disease. No obvious tardus parvus in the common femoral artery to suggest significant inflow stenosis otherwise. Correlation with CTA or MRA should be considered. 2. Difficult to assess popliteal segments due to small sizes and body habitus. Unable to image calf branches due to overlying bandages.
[2022-05-03 16:45] LABS: Glucose Point of Care 110 mg/dL (70-110)
[2022-05-03 20:00] LABS: Basophils % 0.3 %; Eosinophils # 0.2 10^3/uL (0.0-0.8); Hematocrit 30.7 % (37.0-47.0); Lymphocytes # 1.1 10^3/uL (0.8-4.8); Lymphocytes % 10.8 %; Mean Corpuscular HGB Conc 32.6 g/dL (30.0-36.0); Mean Corpuscular Hemoglobin 27.2 pg (28.0-34.0); Mean Corpuscular Volume 83.7 fl (81-99); Mean Platelet Volume 10.7 fL (7.4-10.4); Monocytes # 0.7 10^3/uL (0.2-0.9); Monocytes % 6.9 %; Neutrophils # 7.78 10^3/uL (1.8-7.7); Neutrophils % 79.6 %; Nucleated Red Blood Cells % 0 %; Platelet Count 251 10^3/cmm (130-400); Red Blood Count 3.67 10^6/uL (4.1-5.3); Red Cell Distribution Width 15.6 % (12.1-15.1); White Blood Count 9.8 10^3/uL (4.0-10.0)
[2022-05-03] MEDS: cefTRIAXone 1,000 MG in sodium chloride 0.9% (plus) 50 ML 100 MG IV (20:11)
[2022-05-03 23:48] LABS: Glucose Point of Care 126 mg/dL (70-110)
[2022-05-03 23:48] LABS: Glucose Point of Care 95 mg/dL (70-110)
[2022-05-04] VITALS (9 sets, daily range): BP systolic 129–174; BP diastolic 65–76; PULSE 72–89; RESP 18–20; TEMP 36.6–37; O2SAT 93–98
[2022-05-04 07:01] LABS: Glucose Point of Care 117 mg/dL (70-110)
[2022-05-04 07:01] LABS: Glucose Point of Care 94 mg/dL (70-110)
[2022-05-04] MEDS: amlodipine 10 mg Tablet PO (07:56)
[2022-05-04] MEDS: aspirin 81 mg EC Tablet PO (07:56)
[2022-05-04] MEDS: potassium chloride ER 10 mEq Tablet 20 MEQ PO (07:56)
[2022-05-04] MEDS: levothyroxine 50 mcg Tablet PO (07:56)
[2022-05-04] MEDS: atorvastatin 40 mg Tablet PO (07:57)
[2022-05-04 11:15] LABS: Glucose Point of Care 126 mg/dL (70-110)
--- NOTE | 2022-05-04 11:23 | PC.SOCIAL ---
IMM Update pg 2 of IMM updated and reviewed w/ patient. Copy provided and Copy initialed, dated and placed in chart.
--- NOTE | 2022-05-04 11:23 | PM.PN ---
Subjective Subjective: No acute vents overnight. Sitting up in bedside. Has been working on physical therapy. Denies any nausea vomiting, headache. States feeling a lot better. Has remained hemodynamically stable and afebrile on room air. Vitals/I&O/Wt Last Vital Signs Temp 98.6 F 05/04/22 00:00 Pulse 78 05/04/22 09:38 Resp 18 05/04/22 09:38 BP 148/69 05/04/22 07:16 Pulse Ox 93 05/04/22 09:38 05/03/22 05/04/22 05/04/22 22:59 06:59 14:59 Intake Total 50 / 410 240 / 240 Balance 50 / 410 240 / 240 Physical Exam Narrative: General: No acute distress, AO x3, on RA HEENT: PERRLA, pupils bilaterally equal and reactive Chest: Bilateral bronchial breath sounds, coarse crackles all over the lung singh. CVS: S1-S2 regular, no murmurs, no tachycardia, no gallops, no rubs Abdomen: Soft, nontender, no organomegaly, bowel sounds present Neuro: No focal deficits, no facial deformity, AO x3, power 5/5 in all limbs Data : 05/03/22 19:45 05/03/22 06:20 Micro: Microbiology 05/01/22 20:44 Urine Culture - Final Urine,Clean Catch Escherichia coli 05/03/22 06:20 Blood Culture - Preliminary Blood NEGATIVE TO DATE 05/03/22 19:45 Blood Culture - Preliminary Blood SPECIMEN COLLECTED 05/01/22 22:19 Blood Culture - Preliminary Blood Streptococcus Group C 05/02/22 15:00 MRSA Culture - Final Nose A&P Assessment and plan (1) Gram-positive bacteremia: Status: Acute (2) Confusion: Status: Acute (3) Acute cystitis: Status: Acute (4) Fall: Status: Acute (5) Carotid stenosis, bilateral: Status: Acute (6) Chronic kidney disease: Status: Acute (7) Diabetes: Status: Acute (8) Stenosis of artery of abdomen: Status: Acute (9) AAA (abdominal aortic aneurysm): Status: Acute Plan Sepsis secondary to UTI: UA concerning for UTI. Ruled in by leukocytosis, fever, target organ dysfunction with altered mental status. Present on admission. Blood culture from admission 2 out of 3 bottles positive for gram-positive cocci. Most likely secondary to lower limb cellulitis. CT chest and pelvis results appreciated. Negative for pneumonia or obstructive nephropathy. Repeat blood cultures sent. Urine culture positive for gram-negative rods. Blood culture sensitivities awaited. MRSA negative. On arrival vancomycin and ceftriaxone. Altered mental status:Resolved. Most likely secondary to metabolic encephalopathy from UTI. Continue to monitor. Frequent reorientation. CT head done on admission negative for any acute abnormality. CKD: Baseline creatinine 1.6-2. Currently creatinine baseline. Strict input output charting, daily weights. Medical reconstruction done for nephrotoxic drugs. Fall: Physical therapy evaluation. Most likely secondary to AMS from UTI. Type 2 diabetes mellitus: Insulin sliding scale. Carb consistent diet. Check A1c. Carotid artery stenosis: Last ultrasound in June 2021. Seems to be stable. Check lipid panel. Continue with aspirin, statin. Infrarenal abdominal aortic aneurysm stenosis: High-grade as seen on CT abdomen pelvis. Will check lower limb aortic Dopplers. Will consult Dr. Haskins next week once available for further evaluation and management. Obstructive sleep apnea: Continuing home CPAP at night. Full code. Carb consistent diet. Lovenox for DVT prophylaxis. Protonix for PUD prophylaxis. Plan for today: Continue with vancomycin and ceftriaxone. Follow-up with blood culture and urine culture for sensitivities. Continue with amlodipine. Blood pressure is better controlled. Repeat labs tomorrow morning. Given lab and vacation today. Plan for discharge: Hopefully can discharge in next 24 hours on oral antibiotics for next 14 days from first negative blood culture back home with home health. Attestations Medical Necessity Statement*: Requires further hospitalization for management of sepsis secondary to UTI, gram-positive bacteremia while first negative blood culture is awaited. 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
[2022-05-04] MEDS: vancomycin 1,250 MG/250 ML PIGGYBACK 200 MG IV (14:23)
[2022-05-04] MEDS: enoxaparin 30 mg/0.3 mL Syringe SUBCUT (14:24)
[2022-05-04 16:54] LABS: Glucose Point of Care 82 mg/dL (70-110)
[2022-05-04] MEDS: cefTRIAXone 1,000 MG in sodium chloride 0.9% (plus) 50 ML 100 MG IV (19:51)
[2022-05-04 20:53] LABS: Glucose Point of Care 189 mg/dL (70-110)
[2022-05-04] MEDS: insulin lispro 100 unit/1 mL SUBCUT (21:36)
[2022-05-05] VITALS: BP 113/59; PULSE 67; RESP 18; TEMP 36.3; O2SAT 97
[2022-05-05 03:53] VITALS: BP 104/62; PULSE 74; RESP 20; TEMP 36.2; O2SAT 96
[2022-05-05 06:37] LABS: Glucose Point of Care 109 mg/dL (70-110)
[2022-05-05 07:28] VITALS: BP 153/76; PULSE 91; RESP 17; TEMP 36.6; O2SAT 93
[2022-05-05] MEDS: amlodipine 10 mg Tablet PO (07:29)
[2022-05-05] MEDS: atorvastatin 40 mg Tablet PO (07:29)
[2022-05-05] MEDS: potassium chloride ER 10 mEq Tablet 20 MEQ PO (07:29)
[2022-05-05] MEDS: aspirin 81 mg EC Tablet PO (07:29)
[2022-05-05] MEDS: levothyroxine 50 mcg Tablet PO (07:29)
--- NOTE | 2022-05-05 10:25 | P.DS_ITS ---
Discharge Providers Date of Admission: 05/01/22 21:56 Date of Discharge: May 05, 2022 Attending Provider at Admission: Tere Frias MD Attending Provider at Discharge: Conner Greco MD Primary Care Provider: Salud Motta MD Diagnoses at Discharge Discharge Diagnosis (1) Gram-positive bacteremia: Status: Acute (2) Confusion: Status: Acute (3) Acute cystitis: Status: Acute (4) Fall: Status: Acute (5) Carotid stenosis, bilateral: Status: Acute (6) Chronic kidney disease: Status: Acute (7) Diabetes: Status: Acute (8) Stenosis of artery of abdomen: Status: Acute (9) AAA (abdominal aortic aneurysm): Status: Acute Reason for Visit Reason for Visit: FALL, LEG PAIN Hospital Course Hospital Course HPI: Tere Frias MD February is a 81 year old female with PMH DM, HTN, carotid stenosis p/w fall at home. Circumstances of fall not clear at this time. Ct head without acute intracranial events. Upon ER arrival she was noted to have fever, generalized fatigue and malaise and appeared slightly confused. At baseline she is alert, awake and oriented. Patient does not recall details leading up to hospital admission. denies any cough, chest pain, dyspnea, palpitations, URI symptoms. Denies abdominal pain, NVD, dysuria. Hospital course: During this hospital stay she was managed for sepsis secondary to: UTI lower extremity cellulitis, Blood culture grew: Streptococcus group C, urine culture grew E. coli, CT chest abdpel wo?: High-grade stenosis infrarenal abdominal aortic aneurysm with a ma ximum diameter 6 mm.No pneumonia.Bilateral lower lobe atelectasis. CT head without contrast: No acute intracranial abnormality.Repeat blood culture was negative. Patient was kept on broad-spectrum antibiotics during hospital stay, at the time of discharge she was discharged on Augmentin as well as levofloxacin to complete antibiotic course. Altered mental status was likely secondary to sepsis, UTI, For CT finding of Infrarenal abdominal aortic aneurysm stenosis: High-grade as seen on CT abdomen pelvis. CV arterial duplex LE BI: 1. No obvious occlusion in the common femoral segments through popliteal regions, however there is somewhat diffusely elevated velocities throughout the bilateral SFAs with monophasic waveform suggesting at least moderate long segment stenoses/diffuse disease. No obvious tardus parvus in the common femoral artery to suggest significant inflow stenosis otherwise.Correlation with CTA or MRA should be considered.Difficult to assess popliteal segments due to small sizes and body habitus. Unable to image calf branches due to overlying bandages. She has been asked to follow Dr. Haskins as an outpatient. Overall patient responded well to above medical management and is being discharged in stable condition to home. She will continue to follow primary care physician as outpatient. ? Physical Exam Const: COMMON NORMALS: patient oriented x3 HENMT: COMMON NORMALS: normocephalic and atraumatic HEAD & SCALP: normocephalic and atraumatic Resp: COMMON NORMALS: clear to auscultation bilaterally AUSCULTATION: clear to auscultation bilaterally Cardio: COMMON NORMALS: regular rate, regular rhythm, S1 normal heart sound present, S2 normal heart sound present, No gallops present (Cardio), No murmurs present (Cardio), No rub (Cardio) and Peripheral pulses 2+ throughout RATE: regular rate RHYTHM: regular rhythm HEART SOUNDS: S1 normal heart sound present and S2 normal heart sound present PERIPHERAL PULSES: Peripheral pulses 2+ throughout GI: COMMON NORMALS: Normal to inspection, nondistended, normoactive bowel sounds present, Soft to palpation, non-tender, No hepatosplenomegaly present and no masses AUSCULTATION: Yes normoactive bowel sounds PALPATION: Yes Soft to palpation and Yes No hepatosplenomegaly present RECTAL EXAM: deferred Extremity: COMMON NORMALS: no clubbing, cyanosis or edema and no pedal edema Neuro: COMMON NORMALS: patient oriented x3 Discharge Data Studies Completed and Pending Completed Studies During Hospitalization Category Date Time Status CT chest abdomen pelvis [[place] [id number] Cat Scan 05/02/22 13:22 Completed ] Routine CT head wo con* [id number] Urgent Cat Scan 05/01/22 18:52 Completed XR chest 1V portable [id number] Urgent Exams 05/01/22 18:52 [place] [id number] Routine Ultrasound 05/03/22 13:55 Completed Pending at discharge Category Date Time Status Blood Culture AM LABS Lab 05/03/22 19:45 Results Blood Culture Stat Lab 05/01/22 22:19 Results Complete Blood Count w/Auto AM LABS Lab 05/05/22 04:00 Ordered Comprehensive Metabolic Panel AM LABS Lab 05/05/22 04:00 Ordered Vancomycin Trough Timed Lab 05/06/22 13:30 Ordered Radiology Impressions Chest X-Ray 05/01/22 18:52 IMPRESSION: No acute findings. Head CT 05/01/22 18:52 IMPRESSION: No acute intracranial abnormality. Chest/Abdomen/Pelvis CT 05/02/22 13:22 IMPRESSION: 1. High-grade stenosis infrarenal abdominal aortic aneurysm with a maximum diameter 6 mm. 2. Extensive atherosclerosis abdominal aorta with no aneurysm. 3. Motion artifact throughout the chest, abdomen and pelvis. 4. No pneumonia. 5. Bilateral lower lobe atelectasis. 6. No renal obstruction. Duplex Scan Lower Extremity Artery 05/03/22 13:55 IMPRESSION: 1. No obvious occlusion in the common femoral segments through popliteal regions, however there is somewhat diffusely elevated velocities throughout the bilateral SFAs with monophasic waveform suggesting at least moderate long segment stenoses/diffuse disease. No obvious tardus parvus in the common femoral artery to suggest significant inflow stenosis otherwise. Correlation with CTA or MRA should be considered. 2. Difficult to assess popliteal segments due to small sizes and body habitus. Unable to image calf branches due to overlying bandages. Laboratory Results WBC 9.8 10^3/uL (4.0-10.0) 05/03/22 19:45 Corrected WBC Cancelled 05/01/22 19:55 RBC 3.67 10^6/uL (4.1-5.3) L 05/03/22 19:45 Hgb 10.0 g/dL (11.5-15.3) L 05/03/22 19:45 Hct 30.7 % (37.0-47.0) L 05/03/22 19:45 MCV 83.7 fl (81-99) 05/03/22 19:45 MCH 27.2 pg (28.0-34.0) L 05/03/22 19:45 MCHC 32.6 g/dL (30.0-36.0) 05/03/22 19:45 RDW 15.6 % (12.1-15.1) H 05/03/22 19:45 Plt Count 251 10^3/cmm (130-400) 05/03/22 19:45 MPV 10.7 fL (7.4-10.4) H 05/03/22 19:45 Gran % Cancelled 05/01/22 19:55 Neut % (Auto) 79.6 % 05/03/22 19:45 Lymph % (Auto) 10.8 % 05/03/22 19:45 Richardson % (Auto) 6.9 % 05/03/22 19:45 Eos % (Auto) 2.0 % 05/03/22 19:45 Baso % (Auto) 0.3 % 05/03/22 19:45 Neut # (Auto) 7.78 10^3/uL (1.8-7.7) H 05/03/22 19:45 Lymph # (Auto) 1.1 10^3/uL (0.8-4.8) 05/03/22 19:45 Richardson # (Auto) 0.7 10^3/uL (0.2-0.9) 05/03/22 19:45 Eos # (Auto) 0.2 10^3/uL (0.0-0.8) 05/03/22 19:45 Baso # (Auto) 0.0 10^3/uL (0.0-0.1) 05/03/22 19:45 Absolute Gran (auto) Cancelled 05/01/22 19:55 Nucleated RBC % (auto) 0 % 05/03/22 19:45 Nucleated RBCs # 0.0 /100WBC 05/03/22 19:45 Sodium 136 mmol/L (136-145) 05/03/22 06:20 Potassium 4.4 mmol/L (3.5-5.1) 05/03/22 06:20 Chloride 103 mmol/L (98-107) 05/03/22 06:20 Carbon Dioxide 21 mmol/L (22-29) L 05/03/22 06:20 Anion Gap 16.4 (5-19) 05/03/22 06:20 BUN 30 mg/dL (8-23) H 05/03/22 06:20 Creatinine 1.6 mg/dL (0.5-0.9) H 05/03/22 06:20 GFR Calculation Not Reportable 05/03/22 06:20 Glucose 88 mg/dL (65-115) 05/03/22 06:20 POC Glucose 109 mg/dL (70-110) 05/05/22 06:23 Estimat Average Glucose 174 05/01/22 20:12 Hemoglobin A1c 7.7 % (4.0-6.0) H 05/01/22 20:12 Calculated Osmolality 288 mOsm/kg (285-295) 05/03/22 06:20 Calcium 8.4 mg/dL (8.5-10.5) L 05/03/22 06:20 Iron 13 ug/dL (37-145) L 05/02/22 03:37 TIBC 173 mcg/dl 05/02/22 03:37 % Saturation 7.5 % (20-50) L 05/02/22 03:37 Unsat Iron Binding 160 ug/dL (112-347) 05/02/22 03:37 Total Bilirubin 0.2 mg/dL (0.15-1.2) 05/03/22 06:20 AST 21 U/L (0-32) 05/03/22 06:20 ALT 16 U/L (0-33) 05/03/22 06:20 Alkaline Phosphatase 89 IU/L (35-105) 05/03/22 06:20 NT-Pro-B Natriuret Pep 1872 pg/mL (0-450) H 05/01/22 19:55 Total Protein 6.6 g/dL (6.6-8.7) 05/03/22 06:20 Albumin 2.8 g/dL (3.5-5.2) L 05/03/22 06:20 Globulin 3.8 g/dL (1.3-4.6) 05/03/22 06:20 Triglycerides 132 mg/dL (0-150) 05/03/22 06:20 Cholesterol 178 mg/dL (0-200) 05/03/22 06:20 LDL Cholesterol, Calc 108 mg/dL (50-129) 05/03/22 06:20 Total VLDL Cholesterol 26 mg/dL (0-30) 05/03/22 06:20 HDL Cholesterol 44 mg/dL (60-100) L 05/03/22 06:20 Cholesterol/HDL Ratio 4.05 mg/dL (0.0-4.40) 05/03/22 06:20 Vitamin B12 455 pg/mL (232-1245) 05/02/22 03:37 Folate > 20.0 ng/mL (4.8-37.3) 05/02/22 11:12 TSH 5.19 uIU/mL (0.27-4.20) H 05/02/22 03:37 Free T4 0.92 ng/dL (0.82-1.77) 05/02/22 03:37 Free T3 1.6 PG/ML (2.0-4.4) L 05/02/22 03:37 Urine Color Yellow (Yellow) 05/01/22 20:44 Urine Appearance Sl hazy (CLEAR) 05/01/22 20:44 Urine pH 5 (5-7) 05/01/22 20:44 Ur Specific [place] 1.020 (1.005-1.030) 05/01/22 20:44 Urine Protein 3+ (Negative) H 05/01/22 20:44 Urine Glucose (UA) Norm (Normal) 05/01/22 20:44 Urine Ketones Negative (Negative) 05/01/22 20:44 Urine Blood Trace (Negative) H 05/01/22 20:44 Urine Nitrate Positive (Negative) H 05/01/22 20:44 Urine Bilirubin Neg (Negative) 05/01/22 20:44 Urine Urobilinogen Norm mg/dL (Negative) 05/01/22 20:44 Ur Leukocyte Esterase Trace (Negative) H 05/01/22 20:44 Urine RBC 0-4 /hpf (0-2) H 05/01/22 20:44 Urine WBC >100 /hpf (0-5) H 05/01/22 20:44 Ur Squamous Epith Cells 0-4 /hpf (0-5) H 05/01/22 20:44 Amorphous Sediment 1+ /hpf 05/01/22 20:44 Urine Bacteria 4+ /hpf (NONE) H 05/01/22 20:44 Fine Granular Casts 0-4 /lpf H 05/01/22 20:44 SARS-CoV-2 Ag (Rapid) Negative (Negative) 05/01/22 19:55 Vitals Last Vital Signs Temp 97.9 F 05/05/22 07:28 Pulse 91 05/05/22 07:28 Resp 17 05/05/22 07:28 BP 153/76 05/05/22 07:28 Pulse Ox 93 05/05/22 07:28 Discharge Plan Discharge Patient Disposition: Home Condition: Stable Prescriptions: New Augmentin 500-125 mg tablet 1 tab PO DAILY Qty: 14 0RF levofloxacin 500 mg tablet 500 mg PO Q48H 7 Days Qty: 4 0RF Continued aspirin 81 mg tablet,delayed release (DR/EC) 81 mg PO DAILY 0RF atorvastatin 40 mg tablet 40 mg PO DAILY 0RF glimepiride 1 mg tablet 1 mg PO QAM 0RF potassium chloride 10 mEq Tablet Extended Release 20 meq PO DAILY 0RF levothyroxine 50 mcg tablet 50 mcg PO DAILY 0RF furosemide 20 mg tablet 20 mg PO DAILY 0RF Discharge Orders: Discharge Order (Routine); Ordered 05/05/22 Ordered By: Conner Greco Referrals: [facility] [Other] (Call this # and they should ask you a series of questions. They will assign points based off your answers and your services will be determined by the # of points you have.) [facility] [Other] (This is in home service provider who may be able to help w/ getting the in home services set up if wanted. ) Salud Motta MD [Primary Care Provider] - 05/09/22 9:00 am Rolan Haskins MD [Physician] - 05/12/22 10:45 am (Patient will be seeing Samia) Patient Instructions: Type 2 Diabetes, Amoxicillin/Clavulanate Potassium (By mouth), Levofloxacin (By mouth), Chronic Kidney Disease (DC), Nonruptured Abdominal Aortic Aneurysm (GEN), Fall Prevention (DC), Opioid Safety Discharge Attestations Time Spent in Discharge Care*: less than 30 min Quality Metrics Clinical Quality Measures [ No reported AMI, CVA or VTE this stay] Coding Level of Care Code Acute Chg FW DC note Exam Detailed Diagnoses Gram-positive bacteremia R78.81 Confusion R41.0 Acute cystitis N30.00 Fall W19.XXXA Carotid stenosis, bilateral I65.23 Chronic kidney disease N18.9 Diabetes E11.9 Stenosis of artery of abdomen I77.1 AAA (abdominal aortic aneurysm) I71.4
[2022-05-05 10:58] VITALS: PULSE 90; RESP 18; O2SAT 94
[2022-05-05 11:27] LABS: Glucose Point of Care 108 mg/dL (70-110)
== END 2022-05-05 11:30 | disposition home health service (06) | DRG 871 ==
LOC: ER 21:59 → MEDSURG 22:03
PROVIDERS: Student in an Organized Health Care Education/Training Program; Admitting Provider Student in an Organized Health Care Education/Training Program; Emergency Provider Emergency Medicine; PCP Family Medicine; Visit Provider Internal Medicine
DX: A41.9 Sepsis, unspecified organism (principal); G93.41 Metabolic encephalopathy; N30.00 Acute cystitis without hematuria; L03.116 Cellulitis of left lower limb; L03.115 Cellulitis of right lower limb; B96.20 Unspecified Escherichia coli [E. coli] as the cause of diseases classified elsewhere; W19.XXXA Unspecified fall, initial encounter; I65.23 Occlusion and stenosis of bilateral carotid arteries; E11.22 Type 2 diabetes mellitus with diabetic chronic kidney disease; I12.9 Hypertensive chronic kidney disease with stage 1 through stage 4 chronic kidney disease, or unspecified chronic kidney disease; N18.9 Chronic kidney disease, unspecified; F17.210 Nicotine dependence, cigarettes, uncomplicated; D63.1 Anemia in chronic kidney disease; E03.9 Hypothyroidism, unspecified; E78.00 Pure hypercholesterolemia, unspecified; G47.33 Obstructive sleep apnea (adult) (pediatric); Z99.89 Dependence on other enabling machines and devices; I71.4 Abdominal aortic aneurysm, without rupture; B95.4 Other streptococcus as the cause of diseases classified elsewhere; Z79.84 Long term (current) use of oral hypoglycemic drugs; Z79.82 Long term (current) use of aspirin
CPT/HCPCS: 36415; 36416; 70450; 71045; 71250; 74176; 80053; 80061; 81001; 82607; 82746; 82962; 83036; 83540; 83550; 83880; 84439; 84443; 84481; 85025; 87040; 87077; 87086; 87186; 87205; 87426; 87641; 93005; 93925; 94660; 94760; 96365; 96372; 97110; 97116; 97161; 99285; J0696; J1650; J1815; J3370; J7030

== ENCOUNTER → 2022-05-15 08:38 | Outpatient (BNVA) | payer MEDICARE, MEDICAID, SELFPAY | PROVIDERS: PCP Family Medicine; Visit Provider Nurse Practitioner Family | DX: I12.9 Hypertensive chronic kidney disease with stage 1 through stage 4 chronic kidney disease, or unspecified chronic kidney disease (principal); E11.22 Type 2 diabetes mellitus with diabetic chronic kidney disease; N18.9 Chronic kidney disease, unspecified; Z79.84 Long term (current) use of oral hypoglycemic drugs; G47.33 Obstructive sleep apnea (adult) (pediatric); Z99.89 Dependence on other enabling machines and devices; I35.0 Nonrheumatic aortic (valve) stenosis; R60.9 Edema, unspecified; F17.210 Nicotine dependence, cigarettes, uncomplicated | CPT/HCPCS: 99214 ==

== ENCOUNTER → 2022-06-11 12:55 | Outpatient (BNVA) | payer MEDICARE, MEDICAID, SELFPAY | PROVIDERS: PCP Family Medicine; Visit Provider Internal Medicine Cardiovascular Disease | DX: I65.23 Occlusion and stenosis of bilateral carotid arteries (principal); I12.9 Hypertensive chronic kidney disease with stage 1 through stage 4 chronic kidney disease, or unspecified chronic kidney disease; E11.22 Type 2 diabetes mellitus with diabetic chronic kidney disease; F17.210 Nicotine dependence, cigarettes, uncomplicated; N18.30 Chronic kidney disease, stage 3 unspecified; Z79.84 Long term (current) use of oral hypoglycemic drugs; R60.9 Edema, unspecified; R06.02 Shortness of breath; I70.0 Atherosclerosis of aorta; E11.65 Type 2 diabetes mellitus with hyperglycemia; G47.33 Obstructive sleep apnea (adult) (pediatric); Z99.89 Dependence on other enabling machines and devices; R00.1 Bradycardia, unspecified | CPT/HCPCS: 93270; 99204 ==

== ENCOUNTER → 2022-06-25 10:18 | Outpatient (BNVA) | payer MEDICARE, MEDICAID, SELFPAY | PROVIDERS: PCP Family Medicine; Visit Provider Family Medicine | DX: E03.9 Hypothyroidism, unspecified (principal); E78.00 Pure hypercholesterolemia, unspecified; G47.33 Obstructive sleep apnea (adult) (pediatric); I10 Essential (primary) hypertension; Z99.89 Dependence on other enabling machines and devices; R60.9 Edema, unspecified; E11.9 Type 2 diabetes mellitus without complications | CPT/HCPCS: 80053; 80061; 83036; 84439; 84443; 85025 ==

== ENCOUNTER 2022-06-27 13:29 | Outpatient (CLI) | payer MEDICARE, MEDICAID, SELFPAY ==
--- NOTE | 2022-06-27 13:45 | USCV_ITS ---
February, Age: 82 Gender: F : 1940 Exam Date: 06/27/2022 14:08 Ordering Phys: Samia Caldera Technologist: GONZALO [place] [facility] [place]: SOB aortic stenosis BP: 130 / 72 HR: 76 Rhythm: Sinus Technical Quality: Adequate MEASUREMENTS (Male / Female) Normal Values 2D ECHO LV Diastolic Diameter PLAX 4.3 cm 4.2 - 5.9 / 3.9 - 5.3 cm LV Systolic Diameter PLAX 2.6 cm IVS Diastolic Thickness 1.5 cm 0.6 - 1.0 / 0.6 - 0.9 cm IVS Systolic Thickness 1.6 cm LVPW Diastolic Thickness 0.8 cm 0.6 - 1.0 / 0.6 - 0.9 cm LVPW Systolic Thickness 1.1 cm LVOT Diameter 2.1 cm LV Ejection Fraction 2D Teich 72.2 % LV Ejection Fraction MOD 2C 30.9 % LV Ejection Fraction 2C AL 31.2 % LA Diameter 3.5 cm LA Width 2.7 cm LA Height 5.2 cm RA Width 3.3 cm RA Height 4.8 cm Aorta at Sinotubular Diameter 2.5 cm IVC Diameter 1.7 cm DOPPLER AV Peak Velocity 242.0 cm/s LVOT Peak Velocity 126.0 cm/s AV Area Cont Eq vti 2.0 cm squared AV Area Cont Eq pk 1.8 cm squared MV Peak Velocity 153.0 cm/s MV Area PHT 2.8 cm squared Mitral E to A Ratio 0.7 MV E' Velocity 57.0 cm/s Mitral E to MV E' Ratio 21.6 Mitral E to LV E' Lateral Ratio 16.8 Mitral E to LV E' Septal Ratio 29.9 TR Peak Velocity 209.7 cm/s TR Peak Gradient 17.6 mmHg Right Atrial Pressure 3.0 mmHg Pulmonary Artery Systolic Pressu 20.6 mmHg PV Peak Velocity 105.0 cm/s RV Acceleration Time 0.1 s RV Ejection Time 0.3 s RV AcT/ET 0.2 FINDINGS Left Ventricle Left ventricle is normal in size. LV systolic function is normal with EF of 55 to 60%. No regional wall motion abnormalities are seen. Grade 1 diastolic dysfunction Right Ventricle Normal in size and function Right Atrium Normal in size Left Atrium Normal in size Mitral Valve Thickened mitral valve. No significant regurgitation. Aortic Valve Grossly aortic valve is thickened. Mild aortic stenosis seen with aortic valve area of 1.88 cm squared and mean gradient of 11.5 mmHg. Tricuspid Valve Trace tricuspid regurgitation. RVSP is 30 to 35 mmHg. Pulmonic Valve Not well visualized Pericardium Normal Aorta Normal in size IVC CONCLUSIONS LV systolic function is normal with EF 55 to 60%. Grade 1 diastolic dysfunction Mild aortic stenosis with aortic valve area of 1.88 cm squared and mean gradient of 11.5 mmHg Trace tricuspid regurgitation Compared to prior echocardiogram from 05/17/2020, no significant changes are seen Hossein Escalante MD (Electronically Signed) Final Date: 12 July 2022 12:27 S
== END 2022-06-27 13:30 | disposition home or self-care (01) ==
LOC: RAD 13:29
PROVIDERS: PCP Family Medicine; Visit Provider Nurse Practitioner Family
DX: R01.1 Cardiac murmur, unspecified (principal); I35.0 Nonrheumatic aortic (valve) stenosis; I07.1 Rheumatic tricuspid insufficiency
CPT/HCPCS: 93306

== ENCOUNTER 2022-07-02 20:00 | Outpatient (CLI) | payer MEDICARE, MEDICAID, SELFPAY | END 2022-07-02 20:01 | disposition home or self-care (01) | LOC: SLEEP 07-03 07:14 | PROVIDERS: PCP Family Medicine; Visit Provider Nurse Practitioner Family | DX: G47.33 Obstructive sleep apnea (adult) (pediatric) (principal); Z99.89 Dependence on other enabling machines and devices | CPT/HCPCS: 95810 ==

== ENCOUNTER 2022-08-07 09:06 | Outpatient (CLI) | payer MEDICARE, MEDICAID, SELFPAY ==
--- NOTE | 2022-08-07 09:30 | USCV_ITS ---
February, Age: 82 Gender: F : 1940 Exam Date: 08/07/2022 09:25 Ordering Phys: Samia Caldera Technologist: [place] [facility] [place]: H[place]ORY: PROCEDURES: Bilateral duplex Venous Insufficiency study of the Deep and Superficial systems was carried out according to normal protocol with the patient in supine positon for deep system and dependent position for the superficial system. FINDINGS: All deep veins demonstrated compressibility without evidence of intraluminal thrombus or increased echogenicity. Spectral analysis of Doppler signals demonstrates normal response to compression maneuvers indicating patency without obstruction. Reflux determinations were made with the patient in the dependent position, the weight being on the contralateral leg. No notable reflux was seen at this time. CONCLUSIONS No evidence of DVT in the above-mentioned identifiable veins. No significant venous reflux either in the deep or in the superficial veins. Normal caliber veins bilaterally Dr Alejandra Shepard MD [facility] (Electronically Signed) Final Date: 08 August 2022 16:46 S
== END 2022-08-07 09:07 | disposition home or self-care (01) ==
LOC: RAD 09:07
PROVIDERS: PCP Family Medicine; Visit Provider Nurse Practitioner Family
DX: R60.0 Localized edema (principal)
CPT/HCPCS: 93970

== ENCOUNTER 2022-09-03 20:00 | Outpatient (CLI) | payer MEDICARE, MEDICAID, SELFPAY | END 2022-09-03 20:01 | disposition home or self-care (01) | LOC: SLEEP 09-04 07:08 | PROVIDERS: PCP Family Medicine; Visit Provider Family Medicine | DX: G47.33 Obstructive sleep apnea (adult) (pediatric) (principal); Z79.899 Other long term (current) drug therapy | CPT/HCPCS: 95811 ==

== ENCOUNTER 2022-10-08 13:27 | Outpatient (CLI) | payer MEDICARE, MEDICAID, SELFPAY ==
--- NOTE | 2022-10-08 13:30 | USCV_ITS ---
February, Age: 82 Gender: F : 1940 Exam Date: 10/08/2022 13:44 Ordering Phys: Rolan Haskins MD ([email or web address] [place] Technologist: Claudine Salinas [place] [facility] [place]ication: carotid stenosis Risk Factors: Unknown Previous Vascular Surgery: L CEA Right Brachial BP: / Left Brachial BP: / Right Left Velocity (cm/s) Spectral Plaque Velocity (cm/s) Spectral Plaque Syst/Diast Broadening Syst/Diast Broadening 138.90/18.70 Prox CCA 58.40 / 14.30 145.50/13.20 Mid CCA 48.90 / 10.10 195.00/20.10 Distal CCA 39.40 / 9.20 200.50/22.80 Prox ICA 232.10/ 28.80 113.20/19.70 Mid ICA 150.90/ 31.50 113.20/24.60 Distal ICA 94.60 / 15.80 268.90 ECA 128.80 1.03 ICA/CCA 3.97 Antegrade Vertebral Antegrade 90.20/ 16.40 cm/s 26.90/ 8.50 cm/s Tri Subclavian Bi 102.8 96.40 0 FINDINGS Comparison:. 07/17/21. Diffuse bilateral scattered calcified plaque and intimal thickening throughout the common carotid arteries and extending through the bifurcation. Increase in velocity and ratio of the left ICA. Stenosis nearly at 70%. Diastolic velocity in not elevated. Very tortuous carotid ateries. Right common carotid artery velocity is also elevated. Antegrade vertebral arteries. CONCLUSIONS Left ICA stenosis 50-69%. Increase in stenosis since the prior exam and nearly at 70%. Right ICA stenosis < 50%. Diffuse mild elevation of velocity including the common carotid artery. Very tortuous carotid arteries. Patient would benefit from CTA to confirm extent of stenosis and plaque burden. Dr. Carolyne Luo DO (Electronically Signed) Final Date: 09 October 2022 07:41 S
== END 2022-10-08 13:28 | disposition home or self-care (01) ==
LOC: RAD 13:29
PROVIDERS: PCP Family Medicine; Visit Provider Thoracic Surgery (Cardiothoracic Vascular Surgery)
DX: I65.23 Occlusion and stenosis of bilateral carotid arteries (principal)
CPT/HCPCS: 93880

== ENCOUNTER 2022-11-15 11:57 | Emergency (ER) | payer MEDICARE, MEDICAID, SELFPAY ==
[2022-11-15 11:58] VITALS: BP 179/85; PULSE 81; RESP 18; TEMP 36.6; O2SAT 95
--- NOTE | 2022-11-15 11:58 | W.ED.FALL ---
HPI - Fall General: Chief Complaint: Fall Stated Complaint: HEMATOMA TO BACK OF HEAD S/P FALL Time Seen by Provider: 11/15/22 11:58 History of Present Illness: Ms. Gill is an 82-year-old lady with history of falls, CKD, diabetes, hypertension, valvular heart disease and carotid disease presenting to the emergency department due to fall. She reports feeling generally unwell but no specific symptoms over the past few days. She felt without known specific provoking event earlier. She denies preceding lightheadedness, dizziness, chest pain, shortness of breath. Additionally she has a history of frequent falls. She fell backwards hitting her head. No loss of consciousness. She was able to ambulate afterwards. Currently endorses of some head pain. Intensity symptoms is mild to moderate. Course has persisted. Patient is on aspirin but no other anticoagulation/antiplatelet agents. No other specific changes in health, exacerbating, or alleviating factors identified. Fall from: standing Fall witnessed: no Loss of consciousness: None Prolonged down time: no Symptoms prior to fall: none Context: history of frequent falls Location of injury: head Severity: mild Quality: aching Review of Systems General: Reports: 10 or more systems reviewed and unremarkable except in HPI and below PFSH ED PFSH: Medical History AAA (abdominal aortic aneurysm) Acute cystitis Anemia Aortic valve stenosis Cardiac murmur, previously undiagnosed Carotid stenosis, bilateral Chronic kidney disease Confusion Diabetes Fall Gram-positive bacteremia Heart murmur Hypercholesteremia Hypertension Hypothyroid Stenosis of artery of abdomen Surgical History H/O carotid endarterectomy H/O vascular surgery Family History Mother Dementia Other No pertinent family history Denies family history of Diabetes CAD (coronary artery disease) Clotting disorder Hyperlipidemia Psychiatric illness Chronic kidney disease (CKD) Suicide Anesthesia complication Bleeding disorder Family history of premature coronary artery disease Lung disease Cancer Hypertension Stroke Social History Smoking and tobacco status: never smoked Alcohol intake: never Female Reproductive History: Spontaneous abortions: No Physical Exam Const: COMMON NORMALS: alert GENERAL APPEARANCE: cooperative and well developed HENMT: COMMON NORMALS: normocephalic and atraumatic HEAD & SCALP: normocephalic and atraumatic THROAT: posterior oropharynx normal OTHER: No hatch signs or raccoon eyes. No otorrhea or rhinorrhea. Jaw alignment normal. Dentition baseline. No obvious bony step-offs. No septal hematoma. No evidence of ocular entrapment. Eye: COMMON NORMALS: conjunctivae normal CONJUNCTIVA: Yes conjunctivae normal SCLERA: sclerae normal Neck/C-Spine: COMMON NORMALS: supple GENERAL: Yes trachea midline Chest: COMMONS NORMALS: normal palpation of entire chest wall Resp: COMMON NORMALS: clear to auscultation bilaterally EFFORT & INSPECTION: Yes able to speak in complete sentences AUSCULTATION: clear to auscultation bilaterally Cardio: COMMON NORMALS: regular rate and regular rhythm RATE: regular rate RHYTHM: regular rhythm GI: COMMON NORMALS: Soft to palpation PALPATION: Yes Soft to palpation and No Tenderness to palpation present (GI) Extremity: NARRATIVE EXTREMITY EXAM: No tenderness palpation, normal range of motion GENERAL: Yes normal exam except as noted and Yes edema (2+ with chronic venous changes.) Neuro: COMMON NORMALS: moves all extremities SENSORIUM/ORIENTATION: Yes alert and No Orientation impaired OTHER: Mildly dysarthric speech with the patient reports it is normal for her Psych: COMMON NORMALS: mental status grossly normal and Normal thought process present THOUGHT PROCESS: Normal thought process present Course Vital Signs: Vital signs: Vital Signs Temperature 97.8 F 11/15/22 11:58 Pulse Rate 82 11/15/22 16:20 Respiratory Rate 18 11/15/22 11:58 Blood Pressure 200/91 11/15/22 16:20 Pulse Oximetry 96 11/15/22 16:20 Oxygen Delivery Me thod 11/15/22 11:58 MDM - Fall Medical Decision Making 82-year-old female presenting due to head strike. Head to toe exam performed and exam as noted above. EKG notes sinus rhythm with right bundle branch block, left axis deviation, no STEMI. This appears to be new since April 2022. Hematologic panel with my leukocytosis, normal hemoglobin and platelet count. Metabolic panel appears similar to prior with CKD, no significant micrograms requiring acute intervention. BNP is mildly elevated. Chest x-ray with no lobar consolidation or pneumothorax. Head CT concerning with right posterior fossa abnormality is likely secondary to neoplasm, this is new since April 2022. CT cervical spine without acute bony injury. 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 Continues to be concerning for oncologic process, reviewed CT chest abdomen pelvis from 05/09 at that time there does not appear to be a clear primary source for metastatic disease. I discussed the results of ED evaluation and imaging with the patient and her family after CT results and MRI results. She desires and is comfortable with discharge and requested [facility] for neurosurgery follow-up. I talked to the neurosurgeon on-call and he will see the patient in clinic. He agrees that despite subacute worsening of truncal ataxia patient can appropriately be seen in the outpatient clinic. We will plan to treat with Decadron for vasogenic edema. Will likely etiology of patient's symptoms with truncal neurologic changes secondary to intracranial mass suspicious for cancer. The results of ED evaluation were discussed with the patient including prescriptions and/or symptomatic cares (if applicable) including appropriate and responsible use, followup plan, and return precautions. The patient verbalized understanding and felt safe for discharge. Medical Records I reviewed the patient's medical records. Lab Data I reviewed the patient's lab results. 11/15/22 13:10 11/15/22 13:10 Radiology Impressions Cervical Spine CT 11/15/22 12:06 IMPRESSION: 1. No acute osseous abnormality. 2. Multilevel degenerative changes. 3. Right upper lobe airspace disease which can be due to pneumonia. Chest X-Ray 11/15/22 12:06 IMPRESSION: No sign of pneumonia. ADDENDUM: 11/15/22 1343 The patient had a concomitant CT CERVICAL SPINE which incidentally noted ground-glass opacities in the right upper lobe which are not radiographically apparent. These opacities could be due to pneumonia given the history of cough. Further evaluation with CT CHEST may be helpful. Head CT 11/15/22 12:06 IMPRESSION: Interval development of an abnormality in the right posterior fossa which at this point is felt likely to be due to a primary or secondary neoplasm in the right cerebellar hemisphere. However, further evaluation, preferably with MRI, would be recommended to further characterize this lesion and to search for additional lesions which may indicate metastatic disease as the most likely cause versus primary brain neoplasm. ADDENDUM: 11/15/22 1899 THIS REPORT CONTAINS FINDINGS THAT MAY BE CRITICAL TO PATIENT CARE. The exam findings were verbally communicated by me via telephone conference to Cruz Escobedo at 1:28 PM BUS AND [employer] INSPECTING DISPATCHER on 11/15/2022. The findings were acknowledged and understood. Head MRI 11/15/22 13:37 IMPRESSION: 3.5 x 2.3 cm ring enhancing posterior fossa mass arising the posterior aspect right cerebellar hemisphere with moderate accompanying vasogenic edema resulting in mild mass effect upon the 4th ventricle. However no compelling evidence of obstructive hydrocephalus at this time. In view of patient's age consider cerebral metastasis from occult primary versus high-grade glioma. Laboratory Results WBC 11.6 10^3/uL (4.0-10.0) H 11/15/22 13:10 RBC 5.28 10^6/uL (4.1-5.3) 11/15/22 13:10 Hgb 14.1 g/dL (11.5-15.3) 11/15/22 13:10 Hct 46.5 % (37.0-47.0) 11/15/22 13:10 MCV 88.1 fl (81-99) 11/15/22 13:10 MCH 26.7 pg (28.0-34.0) L 11/15/22 13:10 MCHC 30.3 g/dL (30.0-36.0) 11/15/22 13:10 RDW 15.8 % (12.1-15.1) H 11/15/22 13:10 Plt Count 263 10^3/cmm (130-400) 11/15/22 13:10 MPV 10.6 fL (7.4-10.4) H 11/15/22 13:10 Neut % (Auto) 88.6 % 11/15/22 13:10 Lymph % (Auto) 5.5 % 11/15/22 13:10 [place] % (Auto) 4.7 % 11/15/22 13:10 Eos % (Auto) 0.3 % 11/15/22 13:10 Baso % (Auto) 0.4 % 11/15/22 13:10 Neut # (Auto) 10.23 10^3/uL (1.8-7.7) H 11/15/22 13:10 Lymph # (Auto) 0.6 10^3/uL (0.8-4.8) L 11/15/22 13:10 [place] # (Auto) 0.5 10^3/uL (0.2-0.9) 11/15/22 13:10 Eos # (Auto) 0.0 10^3/uL (0.0-0.8) 11/15/22 13:10 Baso # (Auto) 0.1 10^3/uL (0.0-0.1) 11/15/22 13:10 Nucleated RBC % (auto) 0 % 11/15/22 13:10 Nucleated RBCs # 0.0 /100WBC 11/15/22 13:10 Sodium 138 mmol/L (136-145) 11/15/22 13:10 Potassium 4.0 mmol/L (3.5-5.1) 11/15/22 13:10 Chloride 102 mmol/L (98-107) 11/15/22 13:10 Carbon Dioxide 22 mmol/L (22-29) 11/15/22 13:10 Anion Gap 18.0 (5-19) 11/15/22 13:10 BUN 34 mg/dL (8-23) H 11/15/22 13:10 Creatinine 1.5 mg/dL (0.5-0.9) H 11/15/22 13:10 GFR Calculation Not Reportable 11/15/22 13:10 Glucose 161 mg/dL (65-115) H 11/15/22 13:10 Calculated Osmolality 297 mOsm/kg (285-295) H 11/15/22 13:10 Calcium 9.3 mg/dL (8.5-10.5) 11/15/22 13:10 Total Bilirubin 0.3 mg/dL (0.15-1.2) 11/15/22 13:10 AST 14 U/L (0-32) 11/15/22 13:10 ALT 13 U/L (0-33) 11/15/22 13:10 Alkaline Phosphatase 129 U/L (35-105) H 11/15/22 13:10 NT-Pro-B Natriuret Pep 1042 pg/mL (0-450) H 11/15/22 13:10 Total Protein 7.6 g/dL (6.6-8.7) 11/15/22 13:10 Albumin 3.8 g/dL (3.5-5.2) 11/15/22 13:10 Globulin 3.8 g/dL (1.3-4.6) 11/15/22 13:10 Discharge Plan Discharge Patient Disposition: Home Clinical Impression: Fall, Closed head injury, Brain tumor, Vasogenic brain edema, Truncal ataxia, CKD (chronic kidney disease) Condition: Stable Prescriptions: New dexamethasone 4 mg tablet 4 mg PO TID Qty: 30 0RF No Action aspirin 81 mg tablet,delayed release (DR/EC) 81 mg PO DAILY furosemide 40 mg tablet 40 mg PO DAILY Qty: 90 1RF levothyroxine 50 mcg tablet 50 mcg PO DAILY Qty: 90 1RF atorvastatin 40 mg tablet 40 mg PO DAILY Qty: 90 2RF Invokana 100 mg tablet See Rx Instructions .ROUTE .COMPLEX Qty: 90 3RF Dose Instruction: Take 1 tablet by mouth once daily Rx Instructions: Take 1 tablet by mouth once daily glimepiride 1 mg tablet 1 mg PO QAM Qty: 90 1RF potassium chloride 10 mEq tablet extended release 10 meq PO BID Qty: 180 1RF furosemide 20 mg tablet 20 mg PO DAILY Discharge Orders: Discharge ED (Routine); Ordered 11/15/22 Ordered By: Cruz Escobedo Referrals: Naman Salazar DO [Primary Care Provider] - Discharge Diet: Usual diet Discharge Activity: Use walker/crutches as instructed Patient Instructions: Fall Prevention for Older Adults (ED), Head Injury (ED), Brain Tumors (DC) Activity Restrictions/Additional Instructions: Thank you for visiting the emergency department. You were seen and evaluated for fall. No acute internal injuries or broken bones were identified. As discussed you do have an abnormality concerning for brain tumor. I discussed this case with neurosurgery at [facility] and they should contact you on Thursday for follow-up. Please also follow-up with your primary care provider. Return to the emergency department for worsening symptoms or anything else that you are concerned about a feel needs emergency department evaluation. Coding Level of Care Code ED Public Affairs Officer for Priscila Zhu Exam Comprehensive
--- NOTE | 2022-11-15 12:06 | XRR_ITS ---
PROCEDURE INFORMATION: Exam: XR Chest Exam date and time: 11/15/2022 1:00 PM Age: 82 years old Clinical indication: Cough TECHNIQUE: Imaging protocol: Radiologic exam of the chest. Views: 1 view. COMPARISON: CT chest abdpel [id number] 05/02/2022 2:47 PM FINDINGS: Lungs: Prior pulmonary granulomatous disease. No focal peripheral lung consolidation, air bronchogram formation, or silhouette sign. Pleural spaces: No pleural effusion. No pneumothorax. Heart/Mediastinum: The cardiac silhouette is not enlarged. The mediastinal contours are normal. Vasculature: The aorta is atherosclerotic. Bones/joints: Old, healed left clavicular fracture. Soft tissues: There is a left epicardial fat pad. XR/XR chest 1V portable [id number] IMPRESSION: No sign of pneumonia.
--- NOTE | 2022-11-15 12:06 | CTR_ITS ---
PROCEDURE INFORMATION: Exam: CT Cervical Spine Without Contrast Exam date and time: 11/15/2022 12:53 PM Age: 82 years old Clinical indication: Injury or trauma; Fall; Blunt trauma TECHNIQUE: Imaging protocol: Computed tomography of the cervical spine without contrast. Radiation optimization: All CT scans at this facility use at least one of these dose optimization techniques: automated exposure control; mA and/or kV adjustment per patient size (includes targeted exams where dose is matched to clinical indication); or iterative reconstruction. Other protocol: This patient has received 3 known CTs and 0 known cardiac nuclear medicine studies in the 12 months prior to the current study. COMPARISON: CT angio headneck* [id number] 03/02/2018 12:59 PM RADIATION DOSE METRICS: Total DLP (mGy-cm): 302.3 FINDINGS: Bones/joints: The cervical vertebral bodies maintain overall height. There is a minimal grade 1 anterolisthesis at C3-C4 and C4-C5. The facets align normally. There is multilevel bilateral facet arthropathy with ankylosis of the right C2-C3 facet joint. The craniocervical junction is normal. The atlantodens interval is not widened. There is multilevel disc and uncovertebral joint degeneration, most prominently at C4-C5 and C5-C6. There is bilateral degenerative foraminal stenosis at C3-C4 down to C5-C6. Lungs: There are ground-glass opacities in the right upper lobe which could be due to pneumonia. Soft tissues: No acute soft tissue abnormality. CT/CT cervical spin wo con* [id number] IMPRESSION: 1. No acute osseous abnormality. 2. Multilevel degenerative changes. 3. Right upper lobe airspace disease which can be due to pneumonia.
--- NOTE | 2022-11-15 12:06 | CTR_ITS ---
PROCEDURE INFORMATION: Exam: CT Head Without Contrast Exam date and time: 11/15/2022 12:53 PM Age: 82 years old Clinical indication: Injury or trauma; Fall; Blunt trauma (contusions or hematomas) TECHNIQUE: Imaging protocol: Computed tomography of the head without contrast. Radiation optimization: All CT scans at this facility use at least one of these dose optimization techniques: automated exposure control; mA and/or kV adjustment per patient size (includes targeted exams where dose is matched to clinical indication); or iterative reconstruction. Other protocol: This patient has received 2 known CTs and 0 known cardiac nuclear medicine studies in the 12 months prior to the current study. COMPARISON: CT head wo con* [id number] 05/01/2022 7:08 PM RADIATION DOSE METRICS: Total DLP (mGy-cm): 1165.21 FINDINGS: Brain: Interval development of a mass process in the right cerebellar hemisphere. There is heterogeneous and irregular low-attenuation change in the posterolateral right cerebellar hemisphere, with the holland matter/white matter junction of the cerebellum being for the most part preserved. There is white matter low-attenuation change compatible with vasogenic edema. There is compression of the 4th ventricle and right to left shift. The findings suggest that there is a mass such as a neoplasm, primary versus secondary, in the right cerebellar hemisphere. Not possible to accurately measure the size of this potential mass as the margins with the normal brain parenchymal are ill-defined. No intracranial hemorrhage. Cerebral ventricles: No hydrocephalus. Paranasal sinuses: There is mild multifocal bilateral ethmoid mucoperiosteal thickening. Mastoid air cells: The mastoid air cells are aerated. Bones/joints: No calvarial fracture. There is hyperostosis frontalis interna. Soft tissues: There is right parietooccipital scalp swelling compatible with contusion/hematoma given the history of trauma. CT/CT head wo con* [id number] IMPRESSION: Interval development of an abnormality in the right posterior fossa which at this point is felt likely to be due to a primary or secondary neoplasm in the right cerebellar hemisphere. However, further evaluation, preferably with MRI, would be recommended to further characterize this lesion and to search for additional lesions which may indicate metastatic disease as the most likely cause versus primary brain neoplasm.
--- NOTE | 2022-11-15 12:19 | ECG_ITS ---
[facility] Test Date: 2022-11-15 Pat Name: Nia Gill Department: Room: Gender: Female Plant Controller: : [id number] Requested By: Cruz Escobedo Order Number: [id number] Mccormick MD: Hossein Escalante M.D. Measurements Intervals Romeo Rate: 78 P: 68 WI: 170 QRS: -75 QRSD: 136 T: 44 QT: 439 QTc: 500 Interpretive Statements SINUS RHYTHM WITH SINUS ARRHYTHMIA LEFT AXIS DEVIATION [QRS AXIS < -30] RIGHT BUNDLE BRANCH BLOCK [120+ ms QRS DURATION, UPRIGHT V1, 40+ ms S IN I/aVL/V4/V5/V6] VOLTAGE CRITERIA FOR LVH [MEETS CRITERIA IN ONE OF: R(aVL), S(V1), R(V5), R(V5/V6)+S(V1)] Compared to ECG 05/01/2022 19:30:48 Left-axis deviation now present Right bundle-branch block now present Left anterior fascicular block no longer present Electronically Signed On 11-16-2022 11:22:56 MATE RELIEF by Hossein Escalante M.D. [email or web address]
[2022-11-15 13:31] LABS: Basophils # 0.1 10^3/uL (0.0-0.1); Basophils % 0.4 %; Eosinophils % 0.3 %; Hematocrit 46.5 % (37.0-47.0); Hemoglobin 14.1 g/dL (11.5-15.3); Lymphocytes # 0.6 10^3/uL (0.8-4.8); Lymphocytes % 5.5 %; Mean Corpuscular HGB Conc 30.3 g/dL (30.0-36.0); Mean Corpuscular Hemoglobin 26.7 pg (28.0-34.0); Mean Corpuscular Volume 88.1 fl (81-99); Mean Platelet Volume 10.6 fL (7.4-10.4); Monocytes # 0.5 10^3/uL (0.2-0.9); Monocytes % 4.7 %; Neutrophils # 10.23 10^3/uL (1.8-7.7); Neutrophils % 88.6 %; Nucleated Red Blood Cells % 0 %; Platelet Count 263 10^3/cmm (130-400); Red Blood Count 5.28 10^6/uL (4.1-5.3); Red Cell Distribution Width 15.8 % (12.1-15.1); White Blood Count 11.6 10^3/uL (4.0-10.0)
--- NOTE | 2022-11-15 13:37 | MRR_ITS ---
PROCEDURE INFORMATION: Exam: MR Head Without and With Contrast Exam date and time: 11/15/2022 2:19 PM Age: 82 years old Clinical indication: Pain; Headache; Additional info: Acute ataxia, abnormal ct/brain mass TECHNIQUE: Imaging protocol: Magnetic resonance imaging of the head without and with contrast. Contrast material: MULTIHANCE; Contrast volume: 16 ml; Contrast route: INTRAVENOUS (IV); COMPARISON: CT head wo con* [id number] 11/15/2022 12:53 PM FINDINGS: Limitations: Study is technically suboptimal due to motion artifact on multiple sequences. Brain: There is a 3.5 x 2.3 cm oval-shaped ring-enhancing mass within the posterior aspect of the right cerebellar hemisphere just below the tentorium with rather extensive vasogenic edema within the right cerebellar hemisphere resulting in some mass effect and mild compression of the 4th ventricle. There are no other enhancing masses detected. No evidence of underlying hemorrhage. There are vague areas of hyperintense confluent T2 signal in the deep periventricular white matter likely secondary to chronic microvascular changes. Cerebral ventricles: Remainder of the ventricular system is unremarkable and not significantly dilated for patient's age and cerebral volume loss. Bones/joints: Unremarkable. Paranasal sinuses: The 2 cm polyp within the lateral wall of the right sphenoid sinus. Remainder of the visualized paranasal sinuses are clear. Mastoid air cells: Normal as visualized. No mastoid effusion. Orbital cavities: Unremarkable. Soft tissues: Unremarkable. MR/MR head wo/w con [id number] IMPRESSION: 3.5 x 2.3 cm ring enhancing posterior fossa mass arising the posterior aspect right cerebellar hemisphere with moderate accompanying vasogenic edema resulting in mild mass effect upon the 4th ventricle. However no compelling evidence of obstructive hydrocephalus at this time. In view of patient's age consider cerebral metastasis from occult primary versus high-grade glioma.
[2022-11-15 13:55] LABS: Alanine Aminotransferase 13 U/L (0-33); Albumin Level 3.8 g/dL (3.5-5.2); Alkaline Phosphatase 129 U/L (35-105); Aspartate Amino Transferase 14 U/L (0-32); Blood Urea Nitrogen 34 mg/dL (8-23); Calcium 9.3 mg/dL (8.5-10.5); Carbon Dioxide 22 mmol/L (22-29); Chloride 102 mmol/L (98-107); Globulin 3.8 g/dL (1.3-4.6); Glucose 161 mg/dL (65-115); NT Pro B Type Natriuretic Pept 1042 pg/mL (0-450); Osmolality Calculated 297 mOsm/kg (285-295); Sodium 138 mmol/L (136-145); Total Bilirubin 0.3 mg/dL (0.15-1.2); Total Protein 7.6 g/dL (6.6-8.7)
[2022-11-15 14:05] VITALS: BP 198/84; O2SAT 95
[2022-11-15] MEDS: gadobenate dimeglumine 20 mL vial IV (14:38)
[2022-11-15] MEDS: dexamethasone 4 mg/mL INJ IVP (16:05)
[2022-11-15 16:20] VITALS: BP 200/91; PULSE 82; O2SAT 96
== END 2022-11-15 16:22 | disposition home or self-care (01) ==
PROVIDERS: Emergency Provider Emergency Medicine; PCP Family Medicine
DX: S09.8XXA Other specified injuries of head, initial encounter (principal); D49.6 Neoplasm of unspecified behavior of brain; G93.6 Cerebral edema; R27.0 Ataxia, unspecified; E11.22 Type 2 diabetes mellitus with diabetic chronic kidney disease; I12.9 Hypertensive chronic kidney disease with stage 1 through stage 4 chronic kidney disease, or unspecified chronic kidney disease; N18.9 Chronic kidney disease, unspecified; Z79.82 Long term (current) use of aspirin; Z79.84 Long term (current) use of oral hypoglycemic drugs; W19.XXXA Unspecified fall, initial encounter
CPT/HCPCS: 70450; 70553; 71045; 72125; 80053; 83880; 85025; 93005; 96374; 99285; A9577; J1100

== ENCOUNTER 2022-11-29 08:52 | Outpatient (CLI) | payer MEDICARE, MEDICAID, SELFPAY ==
--- NOTE | 2022-11-29 | PETR_ITS ---
PROCEDURE INFORMATION: Exam: PET/CT Whole Body Exam date and time: 11/29/2022 10:11 AM Age: 82 years old Clinical indication: Cerebellar mass. The patient takes Metformin for diabetes. LABS AND CLINICAL REPORTS: Glucose: 75 mg/dl Treatment strategy for malignancy (PET staging): Initial Staging (PI) TECHNIQUE: Imaging protocol: Following at least four-hour fasting and following the injection of F-18-FDG, low dose CT images were obtained. Then, PET images were obtained. Attenuation corrected images were constructed using the CT scan. Fused images of PET and CT were reviewed. The standardized uptake values (SUV) reported below are maximum values within a region of interest, expressed in gm/ml. Exam includes the whole body. Radiopharmaceutical: 12.82 mCi F-18 FDG (Fluorodeoxyglucose), IV. Time of imaging post radiopharmaceutical administration: 56.117 minutes. Injection site: Left wrist. COMPARISON: CT cervical spin wo con* [id number] 11/15/2022 12:53 PM FINDINGS: Limitations: Misregistration artifact in the head and neck due to patient motion between the CT and PET image acquisitions. Brain: Visualized brain has normal physiologic uptake. Pharynx: No abnormal uptake. Larynx: No abnormal uptake. Lungs, pleura and trachea: Scattered bilateral pulmonary and hilar calcifications are consistent with remote granulomatous disease. In the superomedial aspect of the left lower lobe, at the posterior aspect of the left pulmonary hilum, an ill defined ill-defined FDG avid lesion has an SUV max of 5.8. It is approximally 2.0 x 1.5 cm (image 67). Heart: Aortic valve is heavily calcified (image 75). Mediastinal space: No abnormal uptake. Liver: No hepatic steatosis. Liver density is 56 HU (normal is> 45 HU). Gallbladder and bile ducts: No abnormal uptake. Pancreas: No abnormal uptake. Spleen: No abnormal uptake. Adrenal glands: No abnormal uptake. Kidneys and ureters: Mild bilateral senescent renal atrophy. No hydronephrosis. Stomach and bowel: Mild SUV avidity within a 9 cm segment of the distal sigmoid colon and proximal rectum has an SUV max of 5.6 (images 130-135). It is nonspecific. Because the segment is collapsed, evaluation of its wall is limited. Because the segment of colon was normal on the comparison CT on 05/02/2022, it is most likely physiologic. Other causes cannot be excluded. The stomach is collapsed, which limits evaluation of its wall. The stomach has an SUV max of 4.5, which is within physiologic limits of normal. Reproductive: Postmenopausal uterine and ovarian atrophy is appropriate for 82 years of age. Vasculature: There is severe calcific atherosclerosis of the abdominal aorta causes aortic stenosis. The aortic lumen is reduced to 0.6 x 0.8 cm (image 102). There is no aortic aneurysm. Lymph nodes: An AP window lymph node has an SUV max of 3.9, which is borderline (image 61). A subcarinal mediastinal lymph node has a short axis of 1.1 cm. It is mildly FDG avid and has an SUV max of 4.2, which is borderline (image 65). Bones/joints: Long segment upper thoracic hyperkyphotic curvature without compression fracture. A healing fracture of the lateral right 5th rib has an SUV max of 6.8. Because there is no osteolytic defect, it is probably not a pathologic fracture. Soft tissues: Focal FDG avidity within the right superior gemellus muscle (posterior to the right acetabulum) has an SUV max of 5.0 (image 145). PET/PET WB melanoma INITIAL [id number] IMPRESSION: 1. In the superomedial aspect of the left lower lobe, at the posterior aspect of the left pulmonary hilum, an ill defined ill-defined FDG avid focus has an SUV max of 5.8. It is approximally 2.0 x 1.5 cm (image 67). It is consistent with infection or neoplasia. CT of the chest with contrast is recommended. 2. An AP window lymph node has an SUV max of 3.9, which is borderline (image 61). A subcarinal mediastinal lymph node has a short axis of 1.1 cm. It is mildly FDG avid and has an SUV max of 4.2, which is borderline (image 65). 3. Aortic valve is heavily calcified (image 75). If there is clinical concern for aortic stenosis, an echocardiogram may be helpful. 4. A healing fracture of the lateral right 5th rib has an SUV max of 6.8. Because there is no osteolytic defect, it is probably not a pathologic fracture. Correlate with clinical history. 5. Focal FDG avidity within the right superior gemellus muscle (posterior to the right acetabulum) has an SUV max of 5.0 (image 145). Its cause and clinical significance are uncertain.
== END 2022-11-29 08:53 | disposition home or self-care (01) ==
LOC: RAD 08:52
PROVIDERS: PCP Family Medicine; Visit Provider Surgery
DX: G93.89 Other specified disorders of brain (principal); D43.1 Neoplasm of uncertain behavior of brain, infratentorial
CPT/HCPCS: 78816; A9552

== ENCOUNTER 2022-12-11 07:29 | Oncology outpatient (recurring) (ONCR) | payer MEDICARE, MEDICAID, SELFPAY | END 2022-12-16 23:59 | disposition home or self-care (01) | PROVIDERS: PCP Family Medicine; Visit Provider Internal Medicine Medical Oncology | DX: D49.6 Neoplasm of unspecified behavior of brain (principal); R60.0 Localized edema; Z79.52 Long term (current) use of systemic steroids; Z79.899 Other long term (current) drug therapy; F17.210 Nicotine dependence, cigarettes, uncomplicated | CPT/HCPCS: 99205 ==